=== PATIENT | female | born 1960 | race Caucasian/White ===

== ENCOUNTER 2019-10-29 06:22 | Day surgery (SDC) | payer MEDICAID, SELFPAY ==
[2019-10-28 16:01] VITALS: BMI 28.3
[2019-10-29 06:47] VITALS: BP 156/97; PULSE 60; RESP 18; TEMP 36.8; O2SAT 97
[2019-10-29] MEDS: sodium chloride 0.9% 1,000 ML 30 ML IV (07:02)
--- NOTE | 2019-10-29 07:16 | ANES.PREANE2 ---
Pre-Anesthetic Assessment Pre-Anesthetic Assessment: Height/Weight: Height 1.6 m Weight 72.575 kg Temp Pulse Resp BP Pulse Ox 98.3 F 60 18 156/97 97 10/29/19 06:47 10/29/19 06:47 10/29/19 06:47 10/29/19 06:47 10/29/19 06:47 Preop Diagnosis: Change in bowel habit Proposed Procedure: Operation Date: 10/29/19 07:55 Proposed Procedures p Colonoscopy 36095 R19.4(Not Applicable) - Ladnen Hunt MD Last intake: Intake Last Liquid Date 10/28/19 Last Solid Date 10/28/19 Social: Social History: No alcohol and No tobacco Exam: Pre-Anes Outpt Exam: alert, oriented x 3, clear to auscultation bilaterally and regular rate & rhythm Airway: Submandibular: WNL Cervical ROM: WNL MP: 2 Dentition: Other (teeth ok) History/ROS: No significant history except as noted Pulmonary: Pulmonary: Asthma (mild) CV/HEM: CV/HEM: HTN : : None reported Hepatic: Hepatic: None reported GI: GI: GERD (daily) Metabolic: Metabolic: Thyroid Musc/skel: Musc/skel: Lower Back Pain and OA/DJD Neuropsych: Neuropsych: Anxiety and Depression Anesthetic Plan: ASA status: 3 Anesthesia: Anesthesia Evaluation and MAC Risk of > 500 ml blood loss (7ml/kg in children): No Meds/Allergies Current Medications: Current Medications Generic Name Dose Route Start Last Admin Trade Name Freq PRN Reason Stop Dose Admin Sodium Chloride 1,000 mls @ 30 ml s/hr 10/29/19 06:45 10/29/19 07:02 Sodium Chloride 0.9% IV 10/30/19 06:44 30 mls/hr .Q24H CHADD Administration PFSH Anesthesia PFSH: Medical History Anxiety and depression Diverticulosis GERD (gastroesophageal reflux disease) History of colon polyps Hypertension Hypothyroid Surgical History H/O arthroscopic knee surgery 1981 H/O cystoscopy History of appendectomy 1976 History of bunionectomy of left great toe 2016 History of colonoscopy (~2018) Hx of cholecystectomy 09/2018 Hx of colectomy (~2019) Laparoscopic sigmoid colectomy with colorectal anastomosis 06/12/18 S/P ureteral stent placement Cystoscopy with the double-J ureteric stent placement per Dr. Soriano 06/12/18 Family History Grandmother Dementia Unknown Dementia Data Anesthesia Cardiac Studies: No Data to Display
--- NOTE | 2019-10-29 07:50 | W.PM.OPSUD ---
Surgery/Procedure H&P Update DATE OF PROCEDURE: October 29, 2019 DATE H&P PERFORMED: 10/28/19 H&P UPDATE INFORMATION: I have reviewed H&P completed within last 30 days, I have examined patient prior to procedure and No changes to prior documentation PREOP DIAGNOSIS: Change in bowel habit PRIMARY INDICATION FOR PROCEDURE: The same PLANNED PROCEDURE: Operation Date: 10/29/19 07:55 Proposed Procedures p Colonoscopy 26525 R19.4(Not Applicable) - Landen Hunt MD
[2019-10-29 08:40] VITALS: BP 91/59; PULSE 61; RESP 18; TEMP 36.1; O2SAT 94
[2019-10-29 08:51] VITALS: BP 117/77; PULSE 58; RESP 16; TEMP 36.3; O2SAT 97
== END 2019-10-29 09:15 | disposition home or self-care (01) ==
PROVIDERS: PCP Nurse Practitioner; Visit Provider Surgery
PROC: 0DJD8ZZ Inspection of Lower Intestinal Tract, Via Natural or Artificial Opening Endoscopic (ICD-10-PCS; CPT 45378; principal; 2019-10-29 07:50)
DX: R19.4 Change in bowel habit (principal); Z86.010 Personal history of colon polyps; D12.4 Benign neoplasm of descending colon; K57.30 Diverticulosis of large intestine without perforation or abscess without bleeding; I10 Essential (primary) hypertension; K21.9 Gastro-esophageal reflux disease without esophagitis
CPT/HCPCS: 12345; 45380; 88305; J2704; J7030

== ENCOUNTER 2019-11-20 07:15 | Day surgery (SDC) | payer MEDICAID, SELFPAY ==
[2019-11-18 14:15] VITALS: BMI 28.0
[2019-11-20 07:42] VITALS: BP 162/62; PULSE 62; RESP 18; TEMP 36.1; O2SAT 98
[2019-11-20] MEDS: sodium chloride 0.9% 1,000 ML 30 ML IV (07:47)
--- NOTE | 2019-11-20 07:49 | ANES.PREANE2 ---
Pre-Anesthetic Assessment Pre-Anesthetic Assessment: Height/Weight: Height 1.6 m Weight 71.668 kg Temp Pulse Resp BP Pulse Ox 97 F L 62 18 162/62 98 11/20/19 07:42 11/20/19 07:42 11/20/19 07:42 11/20/19 07:42 11/20/19 07:42 Preop Diagnosis: Nausea and vomiting Proposed Procedure: Operation Date: 11/20/19 08:45 Proposed Procedures p EGD 59897 K21.9(Not Applicable) - Landen Hunt MD Familial anesthetic complications: None Was Beta José Manuel taken within 24 hours: N/A Last intake: Intake Last Liquid Date 11/19/19 Last Liquid Time 21:00 Last Solid Date 11/19/19 Last Solid Time 21:00 Social: Social History: No alcohol and No tobacco Exam: Pre-Anes Outpt Exam: alert, oriented x 3, clear to auscultation bilaterally and regular rate & rhythm Airway: Cervical ROM: WNL MP: 3 Dentition: Chipped Pulmonary: Pulmonary: Asthma CV/HEM: CV/HEM: HTN : : None reported Hepatic: Hepatic: None reported GI: GI: GERD Metabolic: Metabolic: Hyperlipidemia and Thyroid Musc/skel: Musc/skel: None reported Neuropsych: Neuropsych: None reported Anesthetic Plan: ASA status: 2 Anesthesia: MAC Risk of > 500 ml blood loss (7ml/kg in children): No Meds/Allergies Current Medications: Current Medications Generic Name Dose Route Start Last Admin Trade Name Freq PRN Reason Stop Dose Admin Sodium Chloride 1,000 mls @ 30 ml s/hr 11/20/19 07:45 11/20/19 07:47 Sodium Chloride 0.9% IV 11/21/19 07:44 30 mls/hr .Q24H CHADD Administration PFSH Anesthesia PFSH: Medical History Anxiety and depression Diverticulosis GERD (gastroesophageal reflux disease) History of colon polyps Hypertension Hypothyroid Surgical History H/O arthroscopic knee surgery 1981 H/O cystoscopy History of appendectomy 1977 History of bunionectomy of left great toe 2016 History of colonoscopy (~2018) History of colonoscopy with polypectomy (~09/2019) Hx of cholecystectomy 09/2018 Hx of colectomy (~2018) Laparoscopic sigmoid colectomy with colorectal anastomosis 06/12/18 S/P ureteral stent placement Cystoscopy with the double-J ureteric stent placement per Dr. Soriano 06/12/18 Family History Grandmother Dementia Unknown Dementia Data Anesthesia Cardiac Studies: No Data to Display
--- NOTE | 2019-11-20 09:27 | W.PM.OPSUD ---
Surgery/Procedure H&P Update DATE OF PROCEDURE: November 20, 2019 DATE H&P PERFORMED: 11/06/19 H&P UPDATE INFORMATION: I have reviewed H&P completed within last 30 days, I have examined patient prior to procedure and No changes to prior documentation PREOP DIAGNOSIS: Nausea and vomiting PRIMARY INDICATION FOR PROCEDURE: The same PLANNED PROCEDURE: Operation Date: 11/20/19 08:45 Proposed Procedures p EGD 55631 K21.9(Not Applicable) - Landen Hunt MD
[2019-11-20 09:50] VITALS: BP 114/74; PULSE 61; RESP 16; TEMP 36.4; O2SAT 97
[2019-11-20 09:58] VITALS: BP 143/74; PULSE 60; RESP 16; O2SAT 97
--- NOTE | 2019-11-20 09:58 | ANE.PACU2 ---
Inpatient post-anesthesia follow up: Airway intact: Yes Vital signs: Temperature 97.6 F Pulse Rate 61 Respiratory Rate 16 Blood Pressure 114/74 Pulse Oximetry 97 Oxygen Delivery Me thod Nasal Cannula Oxygen Flow Rate 3 Fraction of Inspir ed Oxygen Hydration adequate: Yes Nausea and vomiting: No Mental status: Baseline
[2019-11-21 13:35] LABS: H. Pylori / CLO Test Negative
== END 2019-11-20 10:20 | disposition home or self-care (01) ==
PROVIDERS: PCP Nurse Practitioner; Visit Provider Surgery
PROC: 0DJ08ZZ Inspection of Upper Intestinal Tract, Via Natural or Artificial Opening Endoscopic (ICD-10-PCS; CPT 43235; principal; 2019-11-20 08:45)
DX: R11.2 Nausea with vomiting, unspecified (principal); K21.9 Gastro-esophageal reflux disease without esophagitis; K29.70 Gastritis, unspecified, without bleeding; I10 Essential (primary) hypertension; E78.5 Hyperlipidemia, unspecified; Z86.010 Personal history of colon polyps; E03.9 Hypothyroidism, unspecified
CPT/HCPCS: 12345; 43239; 87077; J2704

== ENCOUNTER 2020-02-12 14:01 | Outpatient (CLI) | payer MEDICARE, MEDICAID, SELFPAY ==
--- NOTE | 2020-02-12 14:21 | XR_ITS ---
WS: [id number] KNEE RIGHT TECHNIQUE: 2 views of the right knee CLINICAL INFORMATION: CHRONIC PATELLOFEMORAL PAIN OF RIGHT KNEE COMPARISON: None. FINDINGS: Osteopenia. Moderate degenerative arthritis with medial and lateral compartment narrowing. Degenerati ve narrowing at the patellofemoral articulation. Hypertrophic patella. Calcified loose bodies in the suprapatellar bursa. No acute fractures. XR/XR knee RT 1-2V [id number] IMPRESSION: 1. Moderate tricompartmental arthritis with hypertrophic patella. 2. Calcified loose bodies in the suprapatellar bursa.
--- NOTE | 2020-02-12 14:22 | CT_ITS ---
WS: [id number] CT HEAD TECHNIQUE: Noncontrast CT of the head obtained from the skullbase to the vertex. CLINICAL INFORMATION: COGNITIVE CHANGES COMPARISON: 2 13,019 DLP: 925.[address] scans at [facility] use at least one of these dose optimization techniques: automat ed exposure control; mA and/or kV adjustment per patient size (includes targeted exams where dose is matched to clinical indication); or iterative reconstruction. FINDINGS: No evidence of intracranial hemorrhage or mass effect. Ventricular system and basal cisterns are seymour nt. Mild small vessel changes with moderate parenchymal volume loss. No extra-axial fluid collections . No evidence of mass or mass effect. Normal rodriguez-white differentiation. Paranasal sinuses and mastoid air cells are well aerated. .Normal visualized soft tissues. CT/CT head wo con* [id number] IMPRESSION: 1. No evidence of intracranial hemorrhage or mass effect. 2. Mild small vessel changes. Moderate parenchymal volume loss. 3. No acute intracranial findings and no significant changes since 2019.
== END 2020-02-12 14:02 | disposition home or self-care (01) ==
PROVIDERS: PCP Nurse Practitioner; Visit Provider Nurse Practitioner
DX: R41.89 Other symptoms and signs involving cognitive functions and awareness (principal); M13.861 Other specified arthritis, right knee
CPT/HCPCS: 70450; 73560

== ENCOUNTER 2020-05-08 09:46 | Outpatient (CLI) | payer MEDICARE, SELFPAY ==
--- NOTE | 2020-05-08 09:53 | MM_ITS ---
WS: [id number] BILATERAL DIGITAL SCREENING MAMMOGRAPHY WITH CAD CLINICAL INFORMATION: SCREENING HISTORY: Screening mammogram. No current complaints. COMPARISON: TECHNIQUE: Bilateral CC and MLO views. FINDINGS: Scattered fibroglandular densities bilaterally. No suspicious focal mass, asymmetry, calcifications, or architectural distortion. No evidence of malignancy. Stable intramammary lymph nodes. MM/[place] [id number] IMPRESSION: BI-RADS: 2-Benign FOLLOW UP: 1 Year Follow-up Recommend return to annual screening mammography.
== END 2020-05-08 09:47 | disposition home or self-care (01) ==
LOC: RADSHAW 09:52
PROVIDERS: PCP Nurse Practitioner; Visit Provider Nurse Practitioner Family
DX: Z12.31 Encounter for screening mammogram for malignant neoplasm of breast (principal)
CPT/HCPCS: 77067

== ENCOUNTER → 2020-07-01 11:28 | Outpatient (BNVA) | payer OTHER, SELFPAY | PROVIDERS: PCP Nurse Practitioner; Visit Provider Psychiatry & Neurology Psychiatry | DX: F41.1 Generalized anxiety disorder (principal) | CPT/HCPCS: 80061; 83036 ==

== ENCOUNTER → 2021-06-10 12:52 | Outpatient (BNVA) | payer OTHER, SELFPAY ==
[2020-07-02 11:14] VITALS: BP 120/73; BMI 27.8
== END ==
PROVIDERS: PCP Nurse Practitioner; Visit Provider Psychiatry & Neurology Psychiatry
DX: F33.0 Major depressive disorder, recurrent, mild (principal)
CPT/HCPCS: 80061; 83036

== ENCOUNTER → 2021-07-26 11:36 | Outpatient (BNVA) | payer MEDICARE, SELFPAY ==
[2021-06-14 15:04] VITALS: BP 156/98; BMI 21.3
== END ==
PROVIDERS: PCP Nurse Practitioner; Visit Provider Surgery
DX: Z20.822 Contact with and (suspected) exposure to COVID-19 (principal)
CPT/HCPCS: 87635

== ENCOUNTER 2021-07-29 06:47 | Day surgery (SDC) | payer MEDICARE, MEDICAID, SELFPAY ==
[2020-07-02 11:14] VITALS: BP 120/73; BMI 27.8
[2021-06-14 15:04] VITALS: BP 156/98; BMI 21.3
[2021-07-27 12:38] VITALS: BMI 21.2
--- NOTE | 2021-07-29 06:53 | P.ANESASSM_ITS ---
Pre-Anesthetic Assessment Height/Weight: Height 1.6 m Weight 54.431 kg Preop Diagnosis: Blood in stool and nonintentional Weight loss Operation Date: 07/29/21 08:15 Proposed Procedures p Colonoscopy 86805 R63.4 Z86.010(Not Applicable) - Landen Hunt MD Familial anesthetic complications: None Was Beta José Manuel taken within 24 hours: N/A Was Clonidine taken within 24 hours: N/A Last intake: > 8hrs Social No alcohol and No tobacco Exam alert, oriented x 3, clear to auscultation bilaterally and regular rate & rhythm Airway Cervical ROM: within normal limits Mallampati: Class II Dentition: chipped Pulmonary Asthma (inhaler prn (occasional)) CV/HEM Hypertension GI Gastroesophageal Reflux Disease Metabolic Hyperlipidemia and Thyroid Disease [facility] [place] None reported Neuropsych None reported Anesthetic Plan ASA status: 3 Anesthesia: MAC Risk of > 500 ml blood loss (7ml/kg in children): No Medications/Allergies Home Medications Medication Instructions Recorded Confirmed Last Taken Type atorvastatin 10 mg tablet 10 mg PO DAILY 10/24/19 07/27/21 1 Day Ago History ~11/19/19 gabapentin 600 mg tablet 600 mg PO TID 10/24/19 07/27/21 1 Day Ago History ~11/19/19 lisinopril 5 mg tablet 5 mg PO DAILY 10/24/19 07/27/21 1 Day Ago History ~11/19/19 cholecalciferol (vitamin D3) 25 50 mcg PO BID cap 05/13/20 07/27/21 Unknown History mcg (1,000 unit) capsule levothyroxine 150 mcg capsule 75 mcg PO DAILY cap 05/13/20 07/27/21 Unknown History albuterol sulfate 90 mcg/actuation 2 puff INHALATION Q6H PRN 06/11/21 07/27/21 Unknown History aerosol inhaler famotidine 20 mg tablet 20 mg PO DAILY 06/11/21 07/27/21 Unknown History mecobalamin (vitamin B12) 10,000 10,000 mcg IM .monthly ea 06/11/21 07/27/21 Unknown History mcg solution for injection Allergies Allergy/AdvReac Type Severity Reaction Status Date / Time meperidine [From Demerol] Allergy Unknown Verified 06/10/21 12:09 [facility] Anesthesia Medical History Anxiety and depression Diverticulosis GERD (gastroesophageal reflux disease) History of colon polyps Hypertension Hypothyroid Psychiatric care Surgical History H/O arthroscopic knee surgery 1981 H/O cystoscopy History of appendectomy 1976 History of bunionectomy of left great toe 2016 History of colonoscopy (~2018) History of colonoscopy with polypectomy (~09/2019) Hx of cholecystectomy 09/2018 Hx of colectomy (~2018) Laparoscopic sigmoid colectomy with colorectal anastomosis 06/12/18 S/P ureteral stent placement Cystoscopy with the double-J ureteric stent placement per Dr. Soriano 06/12/18 Family History Grandmother Dementia Hypertension Unknown Dementia Sister Hyperlipidemia Other Anxiety and depression Social History (Updated 06/11/21 @ 09:37 by Natacha Serrano RN) Smoking and tobacco status: never smoked Second hand smoke exposure: Yes Alcohol intake: former Former alcohol use details: quit 5 years ago Adopted: No Caregiver/support person: No Lives independently: Yes Household members: friend(s) Housing: Manufactured/Mobile home Marital status: Single Number of children: 0 Number of grandchildren: 0 Highest education level completed: Some College, No Degree service: No Current occupational status: retired and disabled Pets and animals: Yes (sneaky and traveler) Pets & animals: cat(s) and dog(s) History of recent travel: No Leisure activites: art, volunteer work and other Leisure activities details: go to river and look for arrow heads Sexually active: No Current gender identity: Female Sakshi/Confucianism: Shinto Special sakshi needs: No Agree to transfusion: Yes Financial difficulty paying for basics: Not Very Hard Female Reproductive History Para: 0 Data Anesthesia Cardiac Studies: No Data to Display
[2021-07-29 07:05] VITALS: BP 118/88; PULSE 59; RESP 18; TEMP 36.1; O2SAT 97
[2021-07-29] MEDS: sodium chloride 0.9% 1,000 ML 30 ML IV (07:16)
--- NOTE | 2021-07-29 08:20 | P.HP_ITS ---
Same Day Surgery H&P Indication for Procedure/HPI DATE OF PROCEDURE: July 29, 2021 CHIEF COMPLAINT/INDICATIONFOR SURGICAL PROCEDURE: Weight loss PREOP DIAGNOSIS: Blood in stool and nonintentional Weight loss PLANNED PROCEDURE: Operation Date: 07/29/21 08:15 Proposed Procedures p Colonoscopy 18444 R63.4 Z86.010(Not Applicable) - Landen Hunt MD 06/09/2021 This is a pleasant 61 years old female patient well-known to me from previous clinical encounter as she did undergo a laparoscopic sigmoid colectomy for com plicated diverticulosis back in 2018.? Patient had a colonoscopy back in October 2019 and was found to have at that time descending colon polyps and diverticulosis. Patient presents to my practice today as a referral because of nonintentional weight loss and blood in stool, reports poor appetite and generalized fatigue. 07/29/2021 Patient comes today for diagnostic colonoscopy status post sigmoid colon resection ROS All systems have been reviewed negative except as per the above or per problem list Medications/Allergies* Home Medications Medication Instructions Recorded Confirmed Type atorvastatin 10 mg tablet 10 mg PO DAILY 10/24/19 07/27/21 History gabapentin 600 mg tablet 600 mg PO TID 10/24/19 07/27/21 History lisinopril 5 mg tablet 5 mg PO DAILY 10/24/19 07/27/21 History cholecalciferol (vitamin D3) 25 50 mcg PO BID cap 05/13/20 07/27/21 History mcg (1,000 unit) capsule levothyroxine 150 mcg capsule 75 mcg PO DAILY cap 05/13/20 07/27/21 History albuterol sulfate 90 mcg/actuation 2 puff INHALATION Q6H PRN 06/11/21 07/27/21 History aerosol inhaler famotidine 20 mg tablet 20 mg PO DAILY 06/11/21 07/27/21 History mecobalamin (vitamin B12) 10,000 10,000 mcg IM .monthly ea 06/11/21 07/27/21 History mcg solution for injection Allergies/Adverse Reactions Allergy/AdvReac Type Severity Reaction Status Date / Time meperidine [From Demerol] Allergy Unknown Verified 07/29/21 08:21 Current Medications: Generic Name Dose Route Start Last Admin Trade Name Freq PRN Reason Stop Dose Admin Sodium Chloride 1,000 mls @ 30 mls/hr 07/29/21 07:00 07/29/21 07:16 Sodium Chloride 0.9% IV 30 mls/hr .Q24H CHADD Administration Pertinent History/Comorbid Conditions* Medical History (Updated 06/10/21 @ 06:42 by Landen Hunt MD) Anxiety and depression Diverticulosis GERD (gastroesophageal reflux disease) History of colon polyps Hypertension Hypothyroid Psychiatric care Surgical History (Updated 11/07/19 @ 13:08 by Landen Hunt MD) H/O arthroscopic knee surgery 1981 H/O cystoscopy History of appendectomy 1976 History of bunionectomy of left great toe 2016 History of colonoscopy (~2018) History of colonoscopy with polypectomy (~09/2019) Hx of cholecystectomy 09/2018 Hx of colectomy (~2018) Laparoscopic sigmoid colectomy with colorectal anastomosis 06/12/18 S/P ureteral stent placement Cystoscopy with the double-J ureteric stent placement per Dr. Soriano 06/12/18 Family History (Updated 03/29/21 @ 16:15 by Betty Shelton) Dementia Grandmother Unknown Hyperlipidemia Sister Anxiety and depression Hypertension Grandmother Social History Smoking and tobacco status: never smoked Second hand smoke exposure: Yes Alcohol intake: former Former alcohol use details: quit 5 years ago Adopted: No Caregiver/support person: No Lives independently: Yes Household members: friend(s) Housing: Manufactured/Mobile home Marital status: Single Number of children: 0 Number of grandchildren: 0 Highest education level completed: Some College, No Degree service: No Current occupational status: retired and disabled Pets and animals: Yes (sneaky and traveler) Pets & animals: cat(s) and dog(s) History of recent travel: No Leisure activites: art, volunteer work and other Leisure activities details: go to river and look for arrow heads Sexually active: No Current gender identity: Female Sakshi/Nondenominational: Pentecostal Special sakshi needs: No Agree to transfusion: Yes Financial difficulty paying for basics: Not Very Hard Pertinent Exam Findings alert, oriented x 3, regular rate & rhythm and procedure specific exam findings (Abdominal examination nontender nondistended soft) Recommendations Surgery/Procedure today (Colonoscopy with possible biopsy) Coding Level of Care Code Acute Tree Specialist for Magalis Araya
[2021-07-29 09:16] VITALS: BP 92/51; PULSE 60; RESP 20; TEMP 36.2; O2SAT 98
[2021-07-29 09:31] VITALS: BP 113/81; PULSE 50; RESP 16; O2SAT 100
--- NOTE | 2021-07-29 19:15 | ANE.PACU2 ---
Inpatient post-anesthesia follow up: Airway intact: Yes Vital signs: Temperature 97.2 F Pulse Rate 50 Respiratory Rate 16 Blood Pressure 113/81 Pulse Oximetry 100 Oxygen Delivery Me thod Room Air Oxygen Flow Rate 3 Fraction of Inspir ed Oxygen Hydration adequate: Yes Nausea and vomiting: No Pain level: 1 Mental status: Baseline
== END 2021-07-29 09:45 | disposition home or self-care (01) ==
PROVIDERS: PCP Nurse Practitioner; Visit Provider Surgery
PROC: 0DJD8ZZ Inspection of Lower Intestinal Tract, Via Natural or Artificial Opening Endoscopic (ICD-10-PCS; CPT 45378; principal; 2021-07-29 08:15)
DX: K92.1 Melena (principal); R63.4 Abnormal weight loss; Z68.20 Body mass index [BMI] 20.0-20.9, adult; Z86.010 Personal history of colon polyps; Z90.49 Acquired absence of other specified parts of digestive tract; I10 Essential (primary) hypertension; E03.9 Hypothyroidism, unspecified; K57.30 Diverticulosis of large intestine without perforation or abscess without bleeding; J45.909 Unspecified asthma, uncomplicated; K21.9 Gastro-esophageal reflux disease without esophagitis; E78.5 Hyperlipidemia, unspecified; F41.9 Anxiety disorder, unspecified; F32.9 Major depressive disorder, single episode, unspecified
CPT/HCPCS: 45378; J2704; J7030

== ENCOUNTER 2021-07-29 14:15 | Outpatient (CLI) | payer MEDICARE, MEDICAID, SELFPAY ==
[2020-07-02 11:14] VITALS: BP 120/73; BMI 27.8
[2021-06-14 15:04] VITALS: BP 156/98; BMI 21.3
--- NOTE | 2021-07-29 14:25 | MM_ITS ---
WS: [id number] Bilateral screening digital mammogram, 07/29/2021 Clinical Data: SCREENING Comparison: 05/08/2020, 06/02/2016, 05/27/2015, 05/26/2014, 07/26/2010. Findings: The breast parenchymal pattern shows abnormal glandular tissue No spiculated masses or clustered calc ifications are seen. There are no secondary signs of carcinoma. MM/[place] [id number] Impression: 1. Negative bilateral mammogram unchanged. 2. Recommend annual screening mammograms. BIRADS: 1-Negative FOLLOW UP: 1 Year Follow-up The CAD apparel stock checker was used.
== END 2021-07-29 14:16 | disposition home or self-care (01) ==
PROVIDERS: PCP Nurse Practitioner; Visit Provider Nurse Practitioner
DX: Z12.31 Encounter for screening mammogram for malignant neoplasm of breast (principal)
CPT/HCPCS: 77067

== ENCOUNTER → 2021-09-01 11:06 | Outpatient (BNVA) | payer MEDICARE, MEDICAID, SELFPAY ==
[2021-06-14 15:04] VITALS: BP 156/98; BMI 21.3
== END ==
PROVIDERS: PCP Nurse Practitioner; Visit Provider Surgery
DX: Z09 Encounter for follow-up examination after completed treatment for conditions other than malignant neoplasm (principal); K57.31 Diverticulosis of large intestine without perforation or abscess with bleeding
CPT/HCPCS: 99213

== ENCOUNTER → 2022-02-08 15:04 | Outpatient (BNVA) | payer MEDICARE, MEDICAID, SELFPAY ==
[2021-06-14 15:04] VITALS: BP 156/98; BMI 21.3
== END ==
PROVIDERS: PCP Nurse Practitioner; Visit Provider Orthopaedic Surgery
DX: S43.402A Unspecified sprain of left shoulder joint, initial encounter (principal); W19.XXXA Unspecified fall, initial encounter
CPT/HCPCS: 73030; 99203

== ENCOUNTER → 2022-03-07 14:12 | Outpatient (BNVA) | payer MEDICAID, SELFPAY ==
[2021-06-14 15:04] VITALS: BP 156/98; BMI 21.3
== END ==
PROVIDERS: PCP Nurse Practitioner; Referring Provider Nurse Practitioner Family; Visit Provider Podiatrist Foot & Ankle Surgery
DX: M20.41 Other hammer toe(s) (acquired), right foot (principal); M20.42 Other hammer toe(s) (acquired), left foot
CPT/HCPCS: 99213; 99214

== ENCOUNTER 2022-03-11 07:41 | Outpatient (CLI) | payer MEDICARE, MEDICAID, SELFPAY ==
[2021-06-14 15:04] VITALS: BP 156/98; BMI 21.3
--- NOTE | 2022-03-11 | CT_ITS ---
WS: [id number] CT HEAD WITH AND WITHOUT CONTRAST HISTORY: AMNESIA TECHNIQUE: Noncontrast 2.5 mm axial images obtained from the vertex to the skull base. Additional randy ging performed at 2.5 mm axial images status post IV contrast. Bone and soft tissue windows are revie wed. All CT scans at [facility] use at least one of these dose optimization techniques: autom ated exposure control; mA and/or kV adjustment per patient size (includes targeted exams where dose i s matched to clinical indication); or iterative reconstruction. CONTRAST: Omnipaque 350; 80 mL IV. DLP: 1894.66 mGy.cm COMPARISON: 02/12/2020 No acute intracranial hemorrhage, edema or midline shift. Mild atrophy and small vessel ischemic dise ase. No significant progression since 02/12/2020. No enhancing mass or vascular malformations identified. Dural venous sinuses are normally enhancing. No aneurysms identified. Mild hypoplasia LEFT A1 segment but it is patent. Paranasal sinuses as visualized: Clear. Mastoid air cells: Clear. Calvarium and scalp: Intact. CT/CT head wo/w con [id number] IMPRESSION: 1. No acute hemorrhage, edema or mass effect. 2. Mild atrophy and small vessel ischemic disease. No progression since 020. 3. No enhancing masses. No vascular malformations identified.
[2022-03-11 08:33] LABS: Blood Urea Nitrogen 15 mg/dL (8-23); Glomerular Filtration Rate 72.7 mL/min (90-130)
[2022-03-11] MEDS: iohexol 350 mg/mL 100 mL Btl IV (08:38)
== END 2022-03-11 07:42 | disposition home or self-care (01) ==
PROVIDERS: PCP Nurse Practitioner; Visit Provider Nurse Practitioner Family
DX: R41.3 Other amnesia (principal); G31.9 Degenerative disease of nervous system, unspecified; I67.82 Cerebral ischemia
CPT/HCPCS: 70470; 82565; 84520

== ENCOUNTER → 2022-04-13 11:28 | Outpatient (BNVA) | payer MEDICARE, MEDICAID, SELFPAY ==
[2021-06-14 15:04] VITALS: BP 156/98; BMI 21.3
== END ==
PROVIDERS: PCP Nurse Practitioner; Referring Provider Nurse Practitioner Family; Visit Provider Specialist
DX: F32.A Depression, unspecified (principal); G31.84 Mild cognitive impairment of uncertain or unknown etiology
CPT/HCPCS: 96116; 99205

== ENCOUNTER 2022-07-06 02:40 | Emergency (ER) | payer MEDICARE, MEDICAID, SELFPAY ==
[2021-06-14 15:04] VITALS: BP 156/98; BMI 21.3
--- NOTE | 2022-07-06 02:43 | XR_ITS ---
WS: [id number] PORTABLE CHEST HISTORY: ingestion COMPARISON: 01/07/2016 Lungs are clear and well expanded. Small granuloma RIGHT upper lobe. No pleural effusion or pneumotho rax. Cardiac size: Normal. Mediastinum/Aorta: Mildly ectatic aorta. No osseous abnormality seen. Mild increased air within the splenic flexure. Prior cholecystectomy. XR/XR chest 1V portable [id number] IMPRESSION: Unremarkable portable chest.
--- NOTE | 2022-07-06 02:43 | XR_ITS ---
WS: [id number] THORACIC SPINE TECHNIQUE: AP and lateral views are performed. HISTORY: fall COMPARISON: None available. Slight increase in the thoracic kyphosis. Mild osteopenia. Pedicles are identified. No fractures or b one destruction. 3 mm anterolisthesis of C2 and C3. Disc spaces are narrowed and desiccated at C4-5 a nd C5-6. XR/XR thoracic spine 3V* [id number] IMPRESSION: Mild increase in thoracic kyphosis. No acute fracture.
--- NOTE | 2022-07-06 02:44 | W.ED.GENADLT ---
HPI - General Adult General: Chief complaint: General Medical Stated complaint: ingestion Time Seen by Provider: 07/06/22 02:43 Source: patient and EMS Mode of arrival: EMS Limitations: no limitations History of Present Illness: 62-year-old female states that she went over her friend's house to do laundry and she states she put her bleach in a Mountain Dew bottle she states that then she mistake and it thought it was Mountain Dew and drank a small drink out of the Mountain Dew bottle roughly 30 minutes ago states she had some burning initially and states she feels fine currently denies any shortness of breath she also complains of some back pain states she had a fall 2 days ago and landed on her back and has had pain to her thoracic spine she rates at 3 out of 10 denies hitting her head no other complaints Associated symptoms: Deny chest pain, dyspnea, headache(s), nausea, rash or vomiting Review of Systems Const: Denies: fever(s), chills, body aches or change in appetite Eyes: Denies: blurry vision or eye discomfort ENMT: Denies: throat pain or dental pain Card: Denies: chest pain Resp: Denies: dyspnea GI: Denies: abdominal pain, nausea, vomiting or diarrhea : Denies: dysuria Musc: Reports: back pain Skin/Breast: Denies: rash Neuro: Denies: headache(s) Psych: Denies: depression Lonnie/Lymph: Denies: easy bruising All/Imm: Denies: urticaria PFSH ED PFSH: Medical History Anxiety and depression Diverticulosis GERD (gastroesophageal reflux disease) History of colon polyps Hypertension Hypothyroid Psychiatric care Surgical History H/O arthroscopic knee surgery 1981 H/O cystoscopy History of appendectomy 1976 History of bunionectomy of left great toe 2016 History of colonoscopy (~2018) History of colonoscopy with polypectomy (~09/2019) Hx of cholecystectomy 09/2018 Hx of colectomy (~2018) Laparoscopic sigmoid colectomy with colorectal anastomosis 06/12/18 S/P ureteral stent placement Cystoscopy with the double-J ureteric stent placement per Dr. Soriano 06/12/18 Family History Grandmother Dementia Hypertension Unknown Dementia Sister Hyperlipidemia Other Anxiety and depression Social History Smoking and tobacco status: never smoked Second hand smoke exposure: Yes Alcohol intake: former Former alcohol use details: quit 5 years ago Adopted: No Caregiver/support person: No Lives independently: Yes Household members: friend(s) Housing: Manufactured/Mobile home Marital status: Single Number of children: 0 Number of grandchildren: 0 Highest education level completed: Some College, No Degree service: No Current occupational status: retired and disabled Pets and animals: Yes (sneaky and traveler) Pets & animals: cat(s) and dog(s) History of recent travel: No Leisure activites: art, volunteer work and other Leisure activities details: go to river and look for arrow heads Sexually active: No Current gender identity: Female Sakshi/Muslim: Judaism Special sakshi needs: No Agree to transfusion: Yes Financial difficulty paying for basics: Not Very Hard Female Reproductive History: Para: 0 Physical Exam Const: COMMON NORMALS: no acute distress, patient oriented x3 and healthy appearing HENMT: COMMON NORMALS: normocephalic and atraumatic HEAD & SCALP: normocephalic and atraumatic THROAT: posterior oropharynx normal Eye: COMMON NORMALS: Equal, round and reactive pupils present and EOMs intact bilaterally PUPIL: Yes Equal, round and reactive pupils present Neck/C-Spine: COMMON NORMALS: full ROM and supple Chest: COMMONS NORMALS: normal inspection of the chest and normal palpation of entire chest wall Resp: COMMON NORMALS: normal respiratory effort, No retractions, No use of accessory muscles and clear to auscultation bilaterally AUSCULTATION: clear to auscultation bilaterally Cardio: COMMON NORMALS: regular rate, regular rhythm and No murmurs present (Cardio) RATE: regular rate RHYTHM: regular rhythm GI: COMMON NORMALS: Normal to inspection, nondistended, normoactive bowel sounds present, Soft to palpation, non-tender and no masses PALPATION: Yes Soft to palpation Back/Pelvis: OTHER: tenderness over thoracic spine and contusion Extremity: COMMON NORMALS: normal to inspection and full ROM Neuro: COMMON NORMALS: patient oriented x3, moves all extremities and no focal motor deficits Psych: COMMON NORMALS: mental status grossly normal, Normal thought process present and cooperative THOUGHT PROCESS: Normal thought process present Skin: COMMON NORMALS: no rashes or lesions noted and no wounds GENERAL SKIN EXAM: no rashes or lesions noted Course Vital Signs: Vital signs: Vital Signs Temperature 97.8 F 07/06/22 02:45 Pulse Rate 79 07/06/22 02:45 Respiratory Rate 16 07/06/22 02:45 Blood Pressure 142/113 07/06/22 02:45 Pulse Oximetry 95 07/06/22 02:45 Oxygen Delivery Me thod 07/06/22 02:45 MDM - General Adult Medical Decision Making Patient presents here after ingestion of bleach she only ingested a small amount she has no signs of any injuries here x-rays are normal she did have a fall recently to her T-spine x-ray is normal she is stable for discharge at this time. Lab Data Radiology Impressions Chest X-Ray 07/06/22 02:43 IMPRESSION: Unremarkable portable chest. Thoracic Spine X-Ray 07/06/22 02:43 IMPRESSION: Mild increase in thoracic kyphosis. No acute fracture. Discharge Plan Discharge Patient Disposition: Home Clinical Impression: Bleach ingestion, Contusion of back Condition: Stable Prescriptions: No Action atorvastatin 10 mg tablet 10 mg PO DAILY lisinopril 5 mg tablet 5 mg PO DAILY levothyroxine 150 mcg capsule 75 mcg PO DAILY cholecalciferol (vitamin D3) 25 mcg (1,000 unit) capsule 50 mcg PO BID albuterol sulfate 90 mcg/actuation HFA aerosol inhaler 2 puff inhalation Q6H PRN (Reason: Shortness Of Breath) mecobalamin (vitamin B12) 10,000 mcg recon soln 10,000 mcg IM .monthly Rx Instructions: TAKES ON famotidine 20 mg tablet 20 mg PO DAILY (DME) orthopedic shoes and accommodative insoles See Rx Instructions .Route .MEDSUPPLY Qty: 1 0RF Rx Instructions: As directed by FAIZAN&O citalopram 20 mg tablet 20 mg PO ONCE 90 Days Qty: 90 3RF Discharge Orders: Discharge ED (Routine); Ordered 07/06/22 Ordered By: Corona Smith Referrals: Jen Cook TRANSITION OF CARE SPECIALIST [Primary Care Provider] - Discharge Diet: Advance as tolerated Discharge Activity: Resume usual activity Patient Instructions: Contusion in Adults (ED) Coding Level of Care Code ED Loan Interviewer Mortgage for Magalis Araya
[2022-07-06 02:45] VITALS: BP 142/113; PULSE 79; RESP 16; TEMP 36.6; O2SAT 95
--- NOTE | 2022-07-06 02:53 | PC.NURSE ---
Spoke with Jayne at [facility]. States household bleach is an irritant, to encourage drinking cold fluids. notified
[2022-07-06 03:59] VITALS: BP 141/92; PULSE 78; RESP 18; O2SAT 95
== END 2022-07-06 04:00 | disposition home or self-care (01) ==
PROVIDERS: Emergency Provider Emergency Medicine; PCP Nurse Practitioner
DX: T54.91XA Toxic effect of unspecified corrosive substance, accidental (unintentional), initial encounter (principal); S20.229A Contusion of unspecified back wall of thorax, initial encounter; W19.XXXA Unspecified fall, initial encounter
CPT/HCPCS: 71045; 72072; 99283

== ENCOUNTER → 2022-09-05 13:10 | Outpatient (BNVA) | payer MEDICARE, MEDICAID, SELFPAY ==
[2021-06-14 15:04] VITALS: BP 156/98; BMI 21.3
== END ==
PROVIDERS: PCP Nurse Practitioner; Visit Provider Podiatrist Foot & Ankle Surgery
DX: M20.41 Other hammer toe(s) (acquired), right foot (principal); M20.42 Other hammer toe(s) (acquired), left foot
CPT/HCPCS: 99213

== ENCOUNTER 2023-07-17 01:15 | Observation (INO) | payer MEDICARE, MEDICAID, SELFPAY ==
[2021-06-14 15:04] VITALS: BP 156/98; BMI 21.3
[2023-07-17] VITALS (33 sets, daily range): BP systolic 118–203; BP diastolic 74–151; PULSE 74–112; RESP 16–26; TEMP 35.9–37.8; O2SAT 92–100; BMI 15.9
--- NOTE | 2023-07-17 01:17 | XRR_ITS ---
PROCEDURE INFORMATION: Exam: XR Chest Exam date and time: 07/17/2023 1:28 AM Age: 63 years old Clinical indication: Chest pressure; Prior surgery; Surgery date: 6+ months; Surgery type: Gb; Patient HX: C/O chest pain; Additional info: Cp TECHNIQUE: Imaging protocol: Radiologic exam of the chest. Views: 1 view. COMPARISON: CR XR chest 1V portable [id number] 07/06/2022 2:51 AM FINDINGS: Lungs: Unremarkable. No consolidation. Pleural spaces: Unremarkable. No pleural effusion. No pneumothorax. Heart/Mediastinum: Unremarkable. No cardiomegaly. Bones/joints: Unremarkable. XR/XR chest 1V portable [id number] IMPRESSION: No acute findings.
[2023-07-17] MEDS: ondansetron 2 mg/ML SDV 2 mL 4 MG IVP (01:35)
[2023-07-17] MEDS: hyDRALAzine 20 mg/mL INJ 1 mL 10 MG IVP ×2 (01:37→02:18)
--- NOTE | 2023-07-17 01:39 | CTR_ITS ---
PROCEDURE INFORMATION: Exam: CTA Head With Contrast, Arteriography Exam date and time: 07/17/2023 1:59 AM Age: 63 years old Clinical indication: Stroke-like symptoms; Headache and visual disturbance; Additional info: BAUMAN TECHNIQUE: Imaging protocol: Computed tomographic angiography of the head with contrast. Exam focused on the arteries. 3D rendering (Not supervised by radiologist): MIP and/or 3D reconstructed images were created by the technologist. Radiation optimization: All CT scans at this facility use at least one of these dose optimization techniques: automated exposure control; mA and/or kV adjustment per patient size (includes targeted exams where dose is matched to clinical indication); or iterative reconstruction. Contrast material: OMNI 350; Contrast volume: 175 ml; Contrast route: INTRAVENOUS (IV); COMPARISON: CT head wo con* [id number] 07/17/2023 1:49 AM RADIATION DOSE METRICS: Total DLP (mGy-cm): 950.83 FINDINGS: ANTERIOR CIRCULATION: Right internal carotid artery: Intracranial segment is patent with no significant stenosis. No aneurysm. Right middle cerebral artery: No occlusion or significant stenosis. No aneurysm. Right anterior cerebral artery: No occlusion or significant stenosis. No aneurysm. Left internal carotid artery: Intracranial segment is patent with no significant stenosis. No aneurysm. Left middle cerebral artery: No occlusion or significant stenosis. No aneurysm. Left anterior cerebral artery: No occlusion or significant stenosis. No aneurysm. POSTERIOR CIRCULATION: Right vertebral artery: No occlusion or significant stenosis. No aneurysm. Left vertebral artery: No occlusion or significant stenosis. No aneurysm. Basilar artery: No occlusion or significant stenosis. No aneurysm. Right posterior cerebral artery: No occlusion or significant stenosis. No aneurysm. Left posterior cerebral artery: No occlusion or significant stenosis. No aneurysm. Brain: No definite mass, mass effect, or midline shift. Cerebral ventricles: No ventriculomegaly. Bones/joints: Unremarkable. No acute fracture. Soft tissues: Unremarkable. PROCEDURE INFORMATION: Exam: CTA Neck With Contrast Exam date and time: 07/17/2023 1:59 AM Age: 63 years old Clinical indication: Stroke-like symptoms; Headache and visual disturbance; Additional info: BAUMAN TECHNIQUE: Imaging protocol: Computed tomographic angiography of the neck with contrast. Exam focused on the cervical segments of the vasculature. 3D rendering (Not supervised by radiologist): MIP and/or 3D reconstructed images were created by the technologist. Radiation optimization: All CT scans at this facility use at least one of these dose optimization techniques: automated exposure control; mA and/or kV adjustment per patient size (includes targeted exams where dose is matched to clinical indication); or iterative reconstruction. Contrast material: OMNI 350; Contrast volume: 175 ml; Contrast route: INTRAVENOUS (IV); COMPARISON: CT head wo con* [id number] 07/17/2023 1:49 AM RADIATION DOSE METRICS: Total DLP (mGy-cm): 950.83 FINDINGS: Right common carotid artery: No significant stenosis. No dissection or occlusion. Right internal carotid artery: No significant stenosis of the extracranial segment. No dissection or occlusion. Right external carotid artery: No occlusion or significant stenosis of the origin. Left common carotid artery: No significant stenosis. No dissection or occlusion. Left internal carotid artery: No significant stenosis of the extracranial segment. No dissection or occlusion. Left external carotid artery: No occlusion or significant stenosis of the origin. Right vertebral artery: No significant stenosis. No dissection or occlusion. Left vertebral artery: No significant stenosis. No dissection or occlusion. Soft tissues: No significant soft tissue swelling. Bones/joints: No acute fracture. Multilevel degenerative disc disease without significant spinal canal stenosis.There are multilevel facet arthrosis and posterior hypertrophic bony changes with corresponding neural foraminal narrowing. CT/CT angio headneck* [id number] IMPRESSION: No large vessel occlusion or severe stenosis. IMPRESSION: 1. Normal right and left extracranial internal carotid arteries by NASCET criteria. 2. Patent bilateral vertebral arteries with a dominant right vertebral. REFERENCES: NASCET CRITERIA. The degree of stenosis in the cervical segment of the internal carotid artery is based on NASCET criteria. Normal is no stenosis. Mild is less than 50% stenosis. Moderate is 50-69% stenosis. Severe is 70% to 99% stenosis. Total occlusion is no detectable patent lumen.
--- NOTE | 2023-07-17 01:39 | CTR_ITS ---
PROCEDURE INFORMATION: Exam: CT Head Without Contrast Exam date and time: 07/17/2023 1:49 AM Age: 63 years old Clinical indication: Stroke-like symptoms; Headache and visual disturbance; Additional info: BAUMAN TECHNIQUE: Imaging protocol: Computed tomography of the head without contrast. Radiation optimization: All CT scans at this facility use at least one of these dose optimization techniques: automated exposure control; mA and/or kV adjustment per patient size (includes targeted exams where dose is matched to clinical indication); or iterative reconstruction. Other technique: STROKE PROTOCOL was implemented. COMPARISON: CT head wo/w con [id number] 03/11/2022 8:24 AM RADIATION DOSE METRICS: Total DLP (mGy-cm): 2037.08 FINDINGS: Brain: Loss of the rodriguez-white matter differentiation in the left occipital lobe. This is concerning for acute infarction. No intracranial hemorrhage. Cerebral ventricles: No ventriculomegaly. Paranasal sinuses: Visualized sinuses are unremarkable. No fluid levels. Mastoid air cells: Visualized mastoid air cells are well aerated. Bones/joints: Unremarkable. No acute fracture. Soft tissues: Unremarkable. CT/CT head wo con* [id number] IMPRESSION: 1. Loss of the rodriguez-white matter differentiation in the left occipital lobe. This is concerning for acute infarction. 2. No intracranial hemorrhage. ASSESSMENT: ASPECTS ([place] Stroke Program Early CT Score) is 10. pc-ASPECTS is 9. THIS REPORT CONTAINS FINDINGS THAT MAY BE CRITICAL TO PATIENT CARE. The findings were verbally communicated via telephone conference with CLAUDIA De Leon at 2:24 AM RECYCLING TECH on 07/17/2023. The findings were acknowledged and understood.
[2023-07-17 01:42] LABS: Glucose Point of Care 186 mg/dL (70-110)
[2023-07-17 01:43] LABS: Basophils % 0.1 %; Lymphocytes # 1.6 10^3/uL (0.8-4.8); Mean Corpuscular HGB Conc 33.6 g/dL (30-55); Mean Corpuscular Hemoglobin 30.8 pg (27-33); Mean Corpuscular Volume 91.7 fl (85-98); Mean Platelet Volume 8.9 fL (7.4-10.4); Monocytes # 0.7 10^3/uL (0.2-0.9); Monocytes % 5.2 %; Neutrophils # 11.95 10^3/uL (1.8-7.7); Neutrophils % 83.4 %; Nucleated Red Blood Cells % 0 %; Platelet Count 401 10^3/cmm (157-399); Red Blood Count 5.45 10^6/uL (3.85-5.65); Red Cell Distribution Width 12.8 % (12.1-15.1); White Blood Count 14.34 10^3/uL (3.29-11.43)
[2023-07-17 01:56] LABS: INR 0.97 (0.8-1.2)
--- NOTE | 2023-07-17 01:57 | W.ED.NAVMDI ---
HPI - Nausea/Vomiting/Diarrhea General: Chief complaint: Nausea/Vomiting/Diarrhea Stated complaint: vomit blood chest pain back pain Time Seen by Provider: 07/17/23 01:17 Source: patient Mode of arrival: ambulatory Limitations: no limitations History of Present Illness: 63-year-old female is here with multiple complaints she states she has had multiple episodes of vomiting throughout the day states has not been able to tolerate any fluids she states she been having epigastric abdominal pain also chest pain states that chest pain is sharp in nature she has had headaches as well she is hypertensive here. She states that she did vomit blood at home she states that she cannot see colors at times. Denies any slurred speech denies any difficulty walking. Patient had stated that she could see and then when she got back to the room at 130 that she cannot see Associated nausea: Yes Associated symtoms: Reports chest pain and nausea; Denies dysuria or headache(s) Review of Systems Const: Denies: fever(s), chills, body aches or change in appetite Eyes: Reports: blurry vision; Denies: eye discomfort ENMT: Denies: throat pain or dental pain Card: Reports: chest pain Resp: Denies: dyspnea GI: Reports: abdominal pain, nausea and vomiting; Denies: diarrhea : Denies: dysuria Musc: Denies: neck pain or back pain Skin/Breast: Denies: rash Neuro: Denies: headache(s) PFSH ED PFSH: Medical History (Updated 07/17/23 @ 04:57 by Claudia Britton MD) Diverticulosis Hypertension Hypothyroid Anxiety and depression GERD (gastroesophageal reflux disease) History of colon polyps Surgical History History of colonoscopy with polypectomy (~09/2019) History of colonoscopy (~2018) Hx of cholecystectomy 09/2018 History of bunionectomy of left great toe 2016 H/O arthroscopic knee surgery 1981 History of appendectomy 1976 H/O cystoscopy S/P ureteral stent placement Cystoscopy with the double-J ureteric stent placement per Dr. 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 Adopted: No Caregiver/support person: No Lives independently: Yes Household members: friend(s) Housing: Manufactured/Mobile home Marital status: Single Number of children: 0 Number of grandchildren: 0 Highest education level completed: Some College, No Degree service: No Current occupational status: retired and disabled Pets and animals: Yes (sneaky and traveler) Pets & animals: cat(s) and dog(s) Leisure activites: art, volunteer work and other Leisure activities details: go to river and look for arrow heads Sexually active: No Do you think of yourself as: Bisexual Current gender identity: Female Sakshi/Mandaen: Sabianism Special sakshi needs: No Agree to transfusion: Yes Female Reproductive History: Para: 0 Physical Exam Const: COMMON NORMALS: patient oriented x3 HENMT: COMMON NORMALS: normocephalic and atraumatic HEAD & SCALP: normocephalic and atraumatic Eye: COMMON NORMALS: Equal, round and reactive pupils present and EOMs intact bilaterally PUPIL: Yes Equal, round and reactive pupils present Neck/C-Spine: COMMON NORMALS: full ROM and supple Chest: COMMONS NORMALS: normal inspection of the chest and normal palpation of entire chest wall Resp: COMMON NORMALS: normal respiratory effort, No retractions, No use of accessory muscles and clear to auscultation bilaterally AUSCULTATION: clear to auscultation bilaterally Cardio: COMMON NORMALS: regular rate, regular rhythm and No murmurs present (Cardio) RATE: regular rate RHYTHM: regular rhythm GI: COMMON NORMALS: Normal to inspection, nondistended, normoactive bowel sounds present, Soft to palpation, non-tender and no masses PALPATION: Yes Soft to palpation Extremity: COMMON NORMALS: normal to inspection and full ROM Neuro: COMMON NORMALS: patient oriented x3, moves all extremities and no focal motor deficits SPEECH: speech normal MOTOR EXAM: 5/5 motor strength present throughout Psych: COMMON NORMALS: mental status grossly normal, Normal thought process present and cooperative THOUGHT PROCESS: Normal thought process present Skin: COMMON NORMALS: no rashes or lesions noted and no wounds GENERAL SKIN EXAM: no rashes or lesions noted Course Reevaluation(s): Reevaluation #1: Patient originally got here she stated that she could not see I did consult neurologist at [facility] he did not see any findings on the CT angio he did see some rodriguez-white differentiation on her CT head he did not recommend lytics as she has complained of vomiting blood she is not a thrombectomy candidate because her initial NIH was only 2 1 I went and reexamined her she can now see she could see me holding 2 fingers up from all the way across the room Time: 02:50 Vital Signs: Vital signs: Vital Signs Temperature 96.7 F L 07/17/23 01:31 Pulse Rate 89 07/17/23 02:15 Respiratory Rate 22 H 07/17/23 02:15 Blood Pressure 199/98 07/17/23 02:15 Pulse Oximetry 100 07/17/23 02:15 Oxygen Delivery Me thod Room Air 07/17/23 01:31 MDM - Nausea/Vomiting/Diarrhea Medical Decision Making Patient presents here with altered mental status and complaint of chest pain along with possible hematemesis no signs of hematemesis here hemoglobin is normal she had complained of not being will see but now she is able to see she did test positive for methamphetamine. CTA shows no acute findings I did speak to neurology she did not recommend lytics due to her vomiting blood she is not a thrombectomy candidate either due to CTA being normal and low NIH. Her neuroexam is changed here with her vision as well. She is quite hypertensive did give her Protonix spoke to the hospitalist will admit at this time Medical Records I reviewed the patient's medical records. Lab Data I reviewed the patient's lab results. 07/17/23 01:34 07/17/23 01:34 Radiology Impressions Chest X-Ray 07/17/23 01:17 IMPRESSION: No acute findings. Head CT 07/17/23 01:39 IMPRESSION: 1. Loss of the rodriguez-white matter differentiation in the left occipital lobe. This is concerning for acute infarction. 2. No intracranial hemorrhage. ASSESSMENT: ASPECTS ([place] Stroke Program Early CT Score) is 10. pc-ASPECTS is 9. THIS REPORT CONTAINS FINDINGS THAT MAY BE CRITICAL TO PATIENT CARE. The findings were verbally communicated via telephone conference with CLAUDIA De Leon at 2:24 AM PIECE MEAT TRIMMER on 07/17/2023. The findings were acknowledged and understood. Head/Neck CTA 07/17/23 01:39 IMPRESSION: No large vessel occlusion or severe stenosis. IMPRESSION: 1. Normal right and left extracranial internal carotid arteries by NASCET criteria. 2. Patent bilateral vertebral arteries with a dominant right vertebral. REFERENCES: NASCET CRITERIA. The degree of stenosis in the cervical segment of the internal carotid artery is based on NASCET criteria. Normal is no stenosis. Mild is less than 50% stenosis. Moderate is 50-69% stenosis. Severe is 70% to 99% stenosis. Total occlusion is no detectable patent lumen. ADDENDUM: 07/17/23 0311 Findings were discussed with CLAUDIA BRITTON at 07/17/2023 3:09 AM PIECE MEAT TRIMMER. Chest/Abdomen/Pelvis CTA 07/17/23 02:39 IMPRESSION: 1. No aortic aneurysm, dissection or penetrating ulcer. 2. Concentric thickening of the distal esophagus that contains fluid, suggestive of reflux esophagitis. Underline neoplasm is not excluded. 3. Marked thickening and hyperemia of the gastric and duodenal pittman consistent with severe gastroduodenitis. Underlying neoplasm is not excluded. Endoscopy may be helpful, if clinically indicated. Given history of hematemesis, this likely represents hemorrhagic gastritis. 4. Additional non emergent findings are stated in the body of the report. ADDENDUM: 07/17/23 0452 Findings were discussed with CLAUDIA BRITTON at 07/17/2023 4:50 AM PIECE MEAT TRIMMER. Laboratory Results WBC 14.34 10^3/uL (3.29-11.43) H 07/17/23 01:34 RBC 5.45 10^6/uL (3.85-5.65) 07/17/23 01:34 Hgb 16.80 g/dL (11.27-16.99) 07/17/23 01:34 Hct 50.0 % (36-47) H 07/17/23 01:34 MCV 91.7 fl (85-98) 07/17/23 01:34 MCH 30.8 pg (27-33) 07/17/23 01:34 MCHC 33.6 g/dL (30-55) 07/17/23 01:34 RDW 12.8 % (12.1-15.1) 07/17/23 01:34 Plt Count 401 10^3/cmm (157-399) H 07/17/23 01:34 MPV 8.9 fL (7.4-10.4) 07/17/23 01:34 Neut % (Auto) 83.4 % 07/17/23 01:34 Lymph % (Auto) 11.0 % 07/17/23 01:34 [place] % (Auto) 5.2 % 07/17/23 01:34 Eos % (Auto) 0.0 % 07/17/23 01:34 Baso % (Auto) 0.1 % 07/17/23 01:34 Neut # (Auto) 11.95 10^3/uL (1.8-7.7) H 07/17/23 01:34 Lymph # (Auto) 1.6 10^3/uL (0.8-4.8) 07/17/23 01:34 [place] # (Auto) 0.7 10^3/uL (0.2-0.9) 07/17/23 01:34 Eos # (Auto) 0.0 10^3/uL (0.0-0.8) 07/17/23 01:34 Baso # (Auto) 0.0 10^3/uL (0.0-0.1) 07/17/23 01:34 Nucleated RBC % (auto) 0 % 07/17/23 01:34 Nucleated RBCs # 0.0 /100WBC 07/17/23 01:34 PT 13.10 SECONDS (12.1-14.9) 07/17/23 01:34 INR 0.97 (0.8-1.2) 07/17/23 01:34 Sodium 131 mmol/L (136-145) L 07/17/23 01:34 Potassium 4.3 mmol/L (3.5-5.1) 07/17/23 01:34 Chloride 87 mmol/L (98-107) L 07/17/23 01:34 Carbon Dioxide 23 mmol/L (22-29) 07/17/23 01:34 Anion Gap 25.3 (5-19) H 07/17/23 01:34 BUN 23 mg/dL (8-23) 07/17/23 01:34 Creatinine 0.7 mg/dL (0.5-0.9) 07/17/23 01:34 GFR Calculation 84.2 mL/min (90-130) L 07/17/23 01:34 Glucose 165 mg/dL (65-115) H 07/17/23 01:34 POC Glucose 186 mg/dL (70-110) H 07/17/23 01:37 Calculated Osmolality 279 mOsm/kg (285-295) L 07/17/23 01:34 Calcium 9.6 mg/dL (8.5-10.5) 07/17/23 01:34 Total Bilirubin 0.7 mg/dL (0.15-1.2) 07/17/23 01:34 AST 21 U/L (0-32) 07/17/23 01:34 ALT 19 U/L (0-33) 07/17/23 01:34 Alkaline Phosphatase 123 U/L (35-105) H 07/17/23 01:34 Troponin T Baseline 12 ng/L (0-10) H 07/17/23 01:34 Troponin T 120 Minute 13.54 ng/L (0-10) H 07/17/23 03:20 Delta Troponin T 1.54 ABS# (0-10) 07/17/23 03:20 Total Protein 7.7 g/dL (6.6-8.7) 07/17/23 01:34 Albumin 4.7 g/dL (3.5-5.2) 07/17/23 01:34 Globulin 3.0 g/dL (1.3-4.6) 07/17/23 01:34 Lipase 75 U/L (13-60) H 07/17/23 01:34 Urine Color Yellow (Yellow) 07/17/23 02:54 Urine Appearance Sl hazy (CLEAR) A 07/17/23 02:54 Urine pH 7 (5-7) 07/17/23 02:54 Ur Specific [place] 1.000 (1.005-1.030) L 07/17/23 02:54 Urine Protein Trace (Negative) 07/17/23 02:54 Urine Glucose (UA) Norm (Normal) 07/17/23 02:54 Urine Ketones 1+ (Negative) H 07/17/23 02:54 Urine Blood Trace (Negative) H 07/17/23 02:54 Urine Nitrate Negative (Negative) 07/17/23 02:54 Urine Bilirubin Neg (Negative) 07/17/23 02:54 Urine Urobilinogen Norm mg/dL (Negative) 07/17/23 02:54 Ur Leukocyte Esterase 1+ (Negative) H 07/17/23 02:54 Urine RBC 0-4 /hpf (0-2) H 07/17/23 02:54 Urine WBC 5-10 /hpf (0-5) H 07/17/23 02:54 Ur Squamous Epith Cells 5-10 /hpf (0-5) H 07/17/23 02:54 Amorphous Sediment Not Reportable 07/17/23 02:54 Urine Bacteria Trace /hpf (NONE) 07/17/23 02:54 Urine Mucus 1+ /hpf 07/17/23 02:54 Urine Opiates Screen Negative ng/mL (Negative) 07/17/23 02:54 Ur Barbiturates Screen Negative ng/mL (Negative) 07/17/23 02:54 Ur Phencyclidine Scrn Negative ng/mL (Negative) 07/17/23 02:54 Ur Amphetamines Screen Positive ng/mL (Negative) H 07/17/23 02:54 U Benzodiazepines Scrn Negative ng/mL (Negative) 07/17/23 02:54 Urine Cocaine Screen Negative ng/mL (Negative) 07/17/23 02:54 U Marijuana (THC) Screen Positive ng/mL (Negative) H 07/17/23 02:54 All radiology interpretation(s) finalized by discharge EKG Data EKG 1: I personally reviewed and interpreted this EKG as follows: EKG interpretation date: 07/17/23 EKG interpretation time: 01:24 Interpretation: jaspal he [address] or t wave abnormalities qrs 92 qtc 423 Discharge Plan Discharge Patient Disposition: Admitted As Inpatient Clinical Impression: Altered mental status, Hypertension, Gastritis, Methamphetamine abuse Condition: Stable Prescriptions: No Action atorvastatin 10 mg tablet 10 mg PO DAILY lisinopril 5 mg tablet 5 mg PO DAILY levothyroxine 150 mcg capsule 75 mcg PO DAILY cholecalciferol (vitamin D3) 25 mcg (1,000 unit) capsule 50 mcg PO BID albuterol sulfate 90 mcg/actuation HFA aerosol inhaler 2 puff inhalation Q6H PRN (Reason: Shortness Of Breath) mecobalamin (vitamin B12) 10,000 mcg recon soln 10,000 mcg IM .monthly Rx Instructions: TAKES ON famotidine 20 mg tablet 20 mg PO DAILY citalopram 20 mg tablet 20 mg PO ONCE 90 Days Qty: 90 3RF (DME) Orthopedic Shoes with custom insoles See Rx Instructions .Route .MEDSUPPLY Qty: 1 0RF Rx Instructions: As directed BY HOME Referrals: Jen Cook APN [Primary Care Provider] - Coding Level of Care Code ED Hardening Machine Operator for Magalis Araya NIH stroke score NIHSS Level Of Consciousness - 1a: 0 Level Of Consciousness Questions - 1b: Both Correct Level Of Consciousness Commands - 1c: Both Correct Best Gaze - 2: Normal Visual Zhang - 3: Complete Hemianopia Facial Palsy - 4: Normal Motor Arm Right - 5: No Drift Motor Arm Left - 5: No Drift Motor Leg Right - 6: No Drift Motor Leg Left - 6: No Drift Limb Ataxia - 7: Absent Sensory - 8: Normal Best Language - 9: No Aphasia Dysarthia - 10: Normal Extinction And Inattention - 11: 0 Score Total Score: 2
[2023-07-17 02:07] LABS: Alanine Aminotransferase 19 U/L (0-33); Albumin Level 4.7 g/dL (3.5-5.2); Alkaline Phosphatase 123 U/L (35-105); Blood Urea Nitrogen 23 mg/dL (8-23); Calcium 9.6 mg/dL (8.5-10.5); Carbon Dioxide 23 mmol/L (22-29); Chloride 87 mmol/L (98-107); Creatinine Clr Calc Pharmacy 52.3247; Glomerular Filtration Rate 84.2 mL/min (90-130); Glucose 165 mg/dL (65-115); Lipase 75 U/L (13-60); Osmolality Calculated 279 mOsm/kg (285-295); Sodium 131 mmol/L (136-145); Total Bilirubin 0.7 mg/dL (0.15-1.2); Total Protein 7.7 g/dL (6.6-8.7)
[2023-07-17 02:10] LABS: Troponin(5th) Baseline 12 ng/L (0-10)
[2023-07-17] MEDS: iohexol 350 mg/mL 500 mL Btl (per mL) IV ×2 (02:12→03:13)
[2023-07-17 02:15] LABS: Anion Gap 25.3 (5-19); Aspartate Amino Transferase 21 U/L (0-32); Potassium 4.3 mmol/L (3.5-5.1)
--- NOTE | 2023-07-17 02:39 | CTR_ITS ---
PROCEDURE INFORMATION: Exam: CTA Chest With Contrast CTA Abdomen and Pelvis With Contrast Exam date and time: 07/17/2023 2:59 AM Age: 63 years old Clinical indication: Prior surgery; Surgery date: 6+ months; Surgery type: Gb. Appy. Ureteral stent. Sigmoidectomy. Patient HX: PT now C/O chest pain radiating into back with an episode of hematemesis prior to er arrival. ; Additional info: Cp/ R/O dissection TECHNIQUE: Imaging protocol: Computed tomographic angiography of the chest with contrast. Exam focused on the arteries. Computed tomographic angiography of the abdomen and pelvis with contrast. Exam focused on the arteries. 3D rendering (Not supervised by radiologist): MIP and/or 3D reconstructed images were created by the technologist. Radiation optimization: All CT scans at this facility use at least one of these dose optimization techniques: automated exposure control; mA and/or kV adjustment per patient size (includes targeted exams where dose is matched to clinical indication); or iterative reconstruction. Contrast material: OMNI 350; Contrast volume: 50 ml; Contrast route: INTRAVENOUS (IV); COMPARISON: CT abdomen pelvis w con* [id number] 05/25/2018 2:38 PM RADIATION DOSE METRICS: Total DLP (mGy-cm): 618.99 FINDINGS: Limitations: Streak and motion artifacts limit evaluation. VASCULATURE: Pulmonary arteries: Evaluation of the pulmonary arteries is severely limited by streak and motion artifact.. Aorta: There is no aortic aneurysm, dissection or penetrating ulcer. The abdominal aorta is mildly tortuous. Celiac trunk and mesenteric arteries: There are mild stenoses at the origins of the celiac trunk and SMA. The WALT is not visualized and may be occluded at its origin. Renal arteries: Mild stenosis at the origin of the left main renal artery. Widely patent right main renal artery. Right iliac arteries: No occlusion or significant stenosis. Left iliac arteries: No occlusion or significant stenosis. CHEST: Lungs: No pulmonary consolidation. Pleural spaces: Unremarkable. No pneumothorax. No pleural effusion. Heart: Unremarkable. No cardiomegaly. No pericardial effusion. Mediastinal space: Concentric thickening of the distal esophagus that contains fluid, suggestive of reflux esophagitis. Diaphragm: There is a small sliding hiatal hernia. ABDOMEN AND PELVIS: Liver: The liver is normal in size. There are no enhancing liver masses. Gallbladder and bile ducts: There has been a cholecystectomy. There is no evidence of biliary ductal dilation. Pancreas: Unremarkable. No mass. No ductal dilation. Spleen: Unremarkable. No splenomegaly. Adrenal glands: Unremarkable. No mass. Kidneys and ureters: There is no hydronephrosis. No renal or obstructive ureteral calculi are identified. Stomach and bowel: Marked thickening of the gastric and duodenal pittman consistent with severe gastroduodenitis. Appendix: Prior appendectomy. Intraperitoneal space: Unremarkable. No free air. No significant fluid collection. Urinary bladder: There is a small left bladder diverticulum.There is no evidence of small bowel or colonic obstruction. Reproductive: Unremarkable as visualized. Lymph nodes: There are juxtapleural calcified granulomas or lymph nodes in the right middle lobe and right upper lobe. Bones/joints: Chronic appearing superior endplate compression fracture of T6 at the site of a Schmorl's node. There is no retropulsion. There is motion artifact on the sternum. Multilevel degenerative disc disease without significant spinal canal stenosis. Grade 1 retrolisthesis of L2 on L3 without associated fracture, presumed to be degenerative related. Soft tissues: Unremarkable. CT/CT [facility] [id number] IMPRESSION: 1. No aortic aneurysm, dissection or penetrating ulcer. 2. Concentric thickening of the distal esophagus that contains fluid, suggestive of reflux esophagitis. Underline neoplasm is not excluded. 3. Marked thickening and hyperemia of the gastric and duodenal pittman consistent with severe gastroduodenitis. Underlying neoplasm is not excluded. Endoscopy may be helpful, if clinically indicated. Given history of hematemesis, this likely represents hemorrhagic gastritis. 4. Additional non emergent findings are stated in the body of the report.
[2023-07-17 03:13] LABS: Add Urine Microscopic? YES; Bilirubin Urine Neg (Negative); Blood Urine Trace (Negative); Glucose Urine UA Norm (Normal); Ketones Urine 1+ (Negative); Leukocyte Esterase Urine 1+ (Negative); Nitrate Urine Negative (Negative); Protein Urine Trace (Negative); Urine Appearance SL Hazy (CLEAR); Urine Color Yellow (Yellow); Urobilinogen Urine Norm (Negative); pH Urine 7 (5-7)
--- NOTE | 2023-07-17 03:17 | ECG_ITS ---
[facility] Test Date: 2023-07-17 Pat Name: Ankita Cervantes Department: Room: Gender: Female Bus Operator: : 1960 Requested By: Corona Smith Order Number: [id number] Iliana MD: Elfego Nettles M.D. Measurements Intervals [place] Rate: 97 P: 24 [place]: 261 QRS: 33 QRSD: 186 T: 60 QT: 475 QTc: 604 Interpretive Statements SINUS RHYTHM WITH FIRST DEGREE AV BLOCK INTRAVENTRICULAR CONDUCTION DELAY [130+ ms QRS DURATION] Compared to ECG 06/13/2018 06:08:01 First degree AV block now present Intraventricular conduction delay now present Sinus tachycardia no longer present Electronically Signed On 07-17-2023 9:50:31 ADMISSIONS EVALUATOR by Elfego Nettles M.D. [id number]
[2023-07-17 03:21] LABS: Bacteria Urine TRACE /hpf; Mucus Urine 1+ /hpf; RBC Urine 0-4 /hpf (0-2)
[2023-07-17 03:22] LABS: Amphetamines Screen Urine Positive (Negative); Barbiturates Screen Urine Negative (Negative); Benzodiazepines Screen Urine Negative (Negative); Cocaine Screen Urine Negative (Negative); Opiate Screen Urine Negative (Negative); PCP Screen Urine Negative (Negative); THC Screen Urine Positive (Negative)
[2023-07-17 03:43] LABS: Troponin 5 2HR 13.54 ng/L (0-10); Troponin 5 2HR Delta 1.54 ABS# (0-10)
[2023-07-17] MEDS: pantoprazole 40 mg SDV 80 MG IVP (05:04)
[2023-07-17 05:14] LABS: Alcohol Level < 10 mg/dL (0-10)
--- NOTE | 2023-07-17 06:08 | P.HP_ITS ---
Providers/Chief Complaint 2 Admitting Physician: Sherman Chavez Primary Care Provider: Jen Cook APN Chief Complaint: vomit blood chest pain back pain History of Present Illness 63-year-old lady with history of hypertension, hypothyroidism, GERD, other medical problems came into ER for evaluation due to multiple episodes of vomiting, epigastric pain, reported vomiting blood at home, additionally having chest pain. On presentation very hypertensive. Received Protonix, hydralazine. Additionally reported vision changes, and stated could not see. CT of the head and CTA head and neck were obtained, discussed by ER physician with neurology. CT head findings concerning for occipital loss of rodriguez-white differentiation, possible CVA. CT angiogram without large vessel obstruction. No intervention recommended. CT chest abdomen pelvis also obtained without aortic dissection or penetrating ulcer, concentric thickening of distal esophagus containing fluid suggestive of reflux esophagitis, underlying neoplasm not excluded. Marked thickening and hyperemia of gastric and duodenal pittman, consistent with severe gastroduodenitis, underlying neoplasm not excluded. Endoscopy may be helpful. Additional nonemergent findings. In ER also with transient confusion, restlessness, but improved, now calm, providing history. Chest pain so far has resolved. Review of Systems 2 Const: Denies: fever(s), chills, body aches or malaise Eyes: Reports: change in vision ENMT: Denies: throat pain Card: Reports: chest pain; Denies: edema, pre-syncope or dyspnea on exertion Resp: Denies: dyspnea, productive cough, change in phlegm color or hemoptysis GI: Reports: nausea and vomiting; Denies: abdominal pain, diarrhea, constipation, hematochezia or melena : Denies: flank pain, urinary frequency or hematuria Musc: Denies: back pain, joint swelling or joint redness Skin/Breast: Denies: rash or new lesions Neuro: Denies: headache(s), numbness in extremities, weakness in extremities, dizziness, confusion or seizure-like activity Medications/Allergies Home Medications Medication Instructions Recorded Confirmed Last Taken Type atorvastatin 10 mg tablet 10 mg PO DAILY 10/24/19 09/05/22 07/28/21 History lisinopril 5 mg tablet 5 mg PO DAILY 10/24/19 09/05/22 07/28/21 History cholecalciferol (vitamin D3) 25 50 mcg PO BID 05/13/20 09/05/22 07/28/21 History mcg (1,000 unit) capsule levothyroxine 150 mcg capsule 75 mcg PO DAILY 05/13/20 09/05/22 07/28/21 History albuterol sulfate 90 mcg/actuation 2 puff inhalation Q6H PRN 06/11/21 09/05/22 07/28/21 History aerosol inhaler Shortness Of Breath famotidine 20 mg tablet 20 mg PO DAILY 06/11/21 09/05/22 07/28/21 History mecobalamin (vitamin B12) 10,000 10,000 mcg IM .monthly 06/11/21 09/05/22 07/28/21 History mcg solution for injection citalopram 20 mg tablet 20 mg PO ONCE 90 days #90 tabs 04/13/22 09/05/22 Unknown Rx Orthopedic Shoes with custom #1 ea 09/05/22 09/05/22 Unknown Rx insoles Allergies Allergy/AdvReac Type Severity Reaction Status Date / Time meperidine [From Demerol] Allergy Unknown Verified 09/05/22 13:20 PFSH Acute 2 PFSH: Medical History Diverticulosis Hypertension Hypothyroid Anxiety and depression GERD (gastroesophageal reflux disease) History of colon polyps Surgical History History of colonoscopy with polypectomy (~09/2019) History of colonoscopy (~2018) Hx of cholecystectomy 09/2018 History of bunionectomy of left great toe 2016 H/O arthroscopic knee surgery 1981 History of appendectomy 1976 H/O cystoscopy S/P ureteral stent placement Cystoscopy with the double-J ureteric stent placement per Dr. 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 Adopted: No Caregiver/support person: No Lives independently: Yes Household members: friend(s) Housing: Manufactured/Mobile home Marital status: Single Number of children: 0 Number of grandchildren: 0 Highest education level completed: Some College, No Degree service: No Current occupational status: retired and disabled Pets and animals: Yes (sneaky and traveler) Pets & animals: cat(s) and dog(s) Leisure activites: art, volunteer work and other Leisure activities details: go to river and look for arrow heads Sexually active: No Do you think of yourself as: Bisexual Current gender identity: Female Sakshi/Confucianist: Gnosticist Special sakshi needs: No Agree to transfusion: Yes Female Reproductive History: Para: 0 Vitals/I&O/Wt Last Vital Signs Temp 96.7 F L 07/17/23 01:31 Pulse 100 07/17/23 05:15 Resp 22 H 07/17/23 05:15 BP 154/94 07/17/23 05:15 Pulse Ox 97 07/17/23 05:15 O2 Del Method Room Air 07/17/23 01:31 Weight last 48 hrs Weight 40.823 kg Physical Exam 2 Const: GENERAL APPEARANCE: cooperative OTHER: Sleeping, wakes up to voice. HENMT: COMMON NORMALS: oropharynx normal Neck/C-Spine: COMMON NORMALS: no JVD Resp: COMMON NORMALS: normal respiratory effort and clear to auscultation bilaterally AUSCULTATION: clear to auscultation bilaterally Cardio: COMMON NORMALS: no JVD, regular rhythm, S1 normal heart sound present, S2 normal heart sound present and No murmurs present (Cardio) RHYTHM: regular rhythm HEART SOUNDS: S1 normal heart sound present and S2 normal heart sound present GI: COMMON NORMALS: Normal to inspection, nondistended, normoactive bowel sounds present, Soft to palpation and non-tender PALPATION: Yes Soft to palpation Extremity: COMMON NORMALS: no joint enlargement and no pedal edema Neuro: COMMON NORMALS: patient oriented x3 and moves all extremities S ENSORIUM/ORIENTATION: Yes alert OTHER: When she woke up remains alert, follows directions. I do not appreciate facial droop. No detectable slurred speech or aphasia. No difficulty tracking horizontally. Visual garcia full to confrontation, no difficulty counting fingers at 2 feet. No visual extinction. No upper or lower extremity drift. Sensory exam symmetrical, no sensory extinction. Skin: COMMON NORMALS: no rashes or lesions noted GENERAL SKIN EXAM: no rashes or lesions noted Data 07/17/23 01:34 07/17/23 01:34 A&P Assessment and plan (1) Hematemesis: Recurrent vomiting at home, reported vomiting blood. Reviewed vitals, CBC, INR, CMP, CT chest abdomen pelvis, discussed with ER physician. Additional concern for CVA, not a candidate for TNK. Received IV PPI, continue IV Protonix every 12 hours. N.p.o. at this time. Recheck hemoglobin at interval. Monitor for further hematemesis, monitor hemodynamic condition. Once stable in terms of hemodynamics and stroke, will need endoscopic evaluation given marked thickening and hyperemia of gastric and duodenal pittman consistent with severe gastroduodenitis, malignancy not excluded, as well as concentric thickening of distal esophagus containing fluid, underlying neoplasm not excluded. (2) CVA (cerebral vascular accident): Suspected CVA after reported vision changes, transient loss of vision, noted loss of differentiation of rodriguez-white matter in occipital lobe. Very hypertensive on presentation. Additionally amphetamine use, smoking, denies injection. Discussed abstinence from amphetamine, further risk of severe/life- threatening cardiovascular complications. Not a candidate for TNK due to hematemesis. Did not yet start antiplatelet due to the same. Follow-up for any further hematemesis, started on PPI, hemoglobin reassessment requested. In case remained stable, consider additional possibly Plavix without loading dose. Did request MRI brain. No large vessel stenosis on CTA. Additional workup with echocardiogram bubble study. PT, OT, ST evaluation. Case management consult. Continue to medication of cardiovascular risk factors, in her case particularly avoidance of offending, as well as optimization of control of hypertension. Permissive hypertension for now, avoid further antihypertensives for now unless blood pressure exceeding 220/120. Will also need to follow-up with neurology. (3) Chest pain: So far resolved, possibly related to severe hypertension on presentation. Complete troponin EKG series, so far minimal troponin elevation. EKG reviewed, without evidence of acute ischemia on my interpretation. Echocardiogram as above. (4) Amphetamine use: Discussed with her abstinence from amphetamine, potential severe/life- threatening cardiovascular and other complications. Case management consultation for resources for rehabilitation. Continue to encourage abstinence. Monitor for any symptoms of withdrawal. (5) Gastritis: Once stable in terms of hemodynamics and stroke, will need endoscopic evaluation given marked thickening and hyperemia of gastric and duodenal pittman consistent with severe gastroduodenitis, malignancy not excluded, as well as concentric thickening of distal esophagus containing fluid, underlying neoplasm not excluded. (6) Esophagitis: Malignancy not excluded, will need further evaluation. PPI. (7) Duodenitis: Malignancy not excluded, will need further evaluation. PPI. Plan Contaminated UA: Requested repeat sample. HTN: Monitor blood pressures. Permissive hypertension at current time. Will need optimization of blood pressure control going forward. Hypothyroidism: Requested to confirm home medications, resume levothyroxine once available. GERD: As above Other medical problems Requested home medications to be confirmed, please review and reconcile once available. Attestations 2 Medical Necessity Statement*: Admission of over 2 midnights anticipated for assessment management of GI bleeding, suspected severe gastroduodenitis, esophagitis, malignancy not excluded, CVA, chest pain, in a lady with amphetamine use, additional, but it is as above. Diagnoses Hematemesis K92.0 CVA (cerebral vascular accident) I63.9 Chest pain R07.9 Amphetamine use F15.90 Gastritis K29.70 Esophagitis K20.90 Duodenitis K29.80
--- NOTE | 2023-07-17 07:17 | ECG_ITS ---
[facility] Test Date: 2023-07-17 Pat Name: Ankita Cervantes Department: Room: 254 Gender: Female Nurse College: : 1960 Requested By: Corona Smith Order Number: [id number] Iliana MD: Elfego Nettles M.D. Measurements Intervals Crosby Rate: 91 P: 0 NM: 0 QRS: 28 QRSD: 96 T: 54 QT: 395 QTc: 487 Interpretive Statements ECTOPIC ATRIAL RHYTHM Compared to ECG 07/17/2023 03:49:01 Sinus rhythm no longer present First degree AV block no longer present Intraventricular conduction delay no longer present Electronically Signed On 07-17-2023 9:50:09 CARDIOLOGY PHYSICIAN by Elfego Nettles M.D. [id number]
--- NOTE | 2023-07-17 07:58 | MR_ITS ---
WS: [id number] MRI BRAIN WITHOUT CONTRAST HISTORY: cva COMPARISON: CT head 07/17/2023 TECHNIQUE: Diffusion imaging, multiplanar T1, T2 and FLAIR imaging obtained. Diffusion imaging is normal. Seen best on the T2 and FLAIR sequences is increased signal in the occip ital lobes bilaterally. Slightly greater increased T2 signal in the cortex of the LEFT occipital lobe . This is a bilateral finding. There are scattered additional areas of increased T2 signal in the RIG HT frontal, posterior LEFT frontal and LEFT paramedian supratentorial white matter. There is no hemor rhage. No edema or midline shift. No hippocampal atrophy. No remote or acute infarcts are volume loss. Ventricles and extra-axial spaces are normal. No inferior displacement of cerebellar tonsils. The sella turcica and pituitary gland are unremarkabl e. Dural venous sinuses and chitimacha of Pereyra demonstrate no abnormality on this unenhanced studies. Paranasal sinuses: Clear. Mastoid air cells: Normal. Calvarium and scalp: Intact. IMPRESSION: 1. Findings most consistent with PRES, posterior reversible encephalopathy syndrome. Correlate with recent history of acute hypertensive episodes. 2. No acute hemorrhage and no diffusion abnormality.
--- NOTE | 2023-07-17 07:58 | USCV_ITS ---
Kyle, [place] Age: 63 Gender: F : 1960 Exam Date: 07/17/2023 13:09 Ordering Phys: Sherman Chavez MD Technologist: Exam Location: [facility] [place] Indication: CVA- BP: / HR: Rhythm: Sinus Technical Quality: Adequate MEASUREMENTS (Male / Female) Normal Values 2D ECHO LV Ejection Fraction MOD 2C 76.1 % IVC Diameter 1.3 cm DOPPLER AV Peak Velocity 193.0 cm/s LVOT Peak Velocity 149.0 cm/s MV Area PHT 3.6 cm squared Mitral E to A Ratio 0.8 TR Peak Velocity 274.0 cm/s TR Peak Gradient 30.0 mmHg Right Atrial Pressure 3.0 mmHg Pulmonary Artery Systolic Pressu 33.0 mmHg PV Peak Velocity 130.0 cm/s FINDINGS Left Ventricle Left ventricle is normal size. LV systolic function is normal with EF of 65 to 70%. No regional wall motion abnormalities are seen. Grade 1 diastolic dysfunction Right Ventricle Normal in size and function Right Atrium Normal in size Left Atrium Normal in size. Bubble study is limited quality however no right to left is apparent Mitral Valve Structurally normal mitral valve. Mild mitral regurgitation. Aortic Valve Structurally normal aortic valve. No significant stenosis. Tricuspid Valve Mild tricuspid regurgitation. Pulmonary artery systolic pressure is normal. Pulmonic Valve Not well visualized Pericardium Normal Aorta Normal in size IVC Appears to be normal CONCLUSIONS LV systolic function is normal with EF 65 to 70% Grade 1 diastolic dysfunction Bubble study is limited quality however no right to left is apparent Mild mitral regurgitation Mild tricuspid regurgitation No comparison studies are available. Elfego Nettles MD (Electronically Signed) Final Date: 17 July 2023 17:00 S
[2023-07-17 09:01] LABS: Troponin 5 6HR 34.94 ng/L (0-10)
[2023-07-17 09:08] LABS: Chol HDL Ratio 2.78 mg/dL (0.0-4.40); Cholesterol 167 mg/dL (0-200); HDL Cholesterol 60 mg/dL (60-100); LDL Cholesterol Calculated 94 mg/dL (50-129); LDL HDL Ratio 1.57 RATIO (0.00-3.22); Triglycerides 66 mg/dL (0-150)
[2023-07-17 09:29] LABS: Troponin 5 6HR Delta 22.94 ng/L (0-12)
[2023-07-17] MEDS: dextrose 5%-sod chloride 0.9% 1,000 ML 100 ML IV ×2 (09:40→23:28)
--- NOTE | 2023-07-17 10:01 | W.PM.EVENTAC ---
Event Note Event Note: Dr. Holden consulted for upper GI bleed Patient is n.p.o. Continue Protonix I will add D5 normal saline Troponin delta noted not a candidate to be on any anticoagulating agent No active chest pain Lives alone Dehydrated Will request physical therapy once we do EGD Hemoglobin stable It could be hemoconcentration
[2023-07-17] MEDS: cefTRIAXone 2,000 MG in sodium chloride 0.9% (plus) 50 ML 100 MG IV (10:31)
--- NOTE | 2023-07-17 11:34 | PC.NURSE ---
patient wheeled off unit to GI lab on [facility].
[2023-07-17] MEDS: sodium chloride 0.9% 1,000 ML 30 ML IV (11:59)
--- NOTE | 2023-07-17 12:01 | P.ANESASSM_ITS ---
Pre-Anesthetic Assessment Height/Weight: Height 1.6 m Weight 49.895 kg Temp Pulse Resp BP Pulse Ox O2 Del Method O2 Flow Rate 98.4 F 84 18 158/107 97 Nasal Cannula 2 07/17/23 11:43 07/17/23 11:43 07/17/23 11:43 07/17/23 11:43 07/17/23 11:43 07/17/23 11:43 07/17/23 11:43 Operation Date: 07/17/23 12:15 Proposed Procedures p EGD(Not Applicable) - Gordy Holden DO Familial anesthetic complications: None Was Beta José Manuel taken within 24 hours: N/A Was Clonidine taken within 24 hours: N/A Last intake: Intake Last Liquid Date 07/17/23 Last Liquid Time 20:00 Last Solid Date 07/16/23 Social No alcohol and No tobacco Exam alert, oriented x 3, clear to auscultation bilaterally and regular rate & rhythm Airway Mallampati: Class II Dentition: full CV/HEM Hypertension chest pains with rise in troponins, unable to be anticoagulated currently due to GI bleed GI No vomiting since last night before she arrived in hospital, denies any current nausea Metabolic Hyperlipidemia and Thyroid Disease Anesthetic Plan ASA status: 3 Anesthesia: MAC Other: MAC for rising troponins in setting of chest pain and no recent vomiting/nausea. Risk of > 500 ml blood loss (7ml/kg in children): No Medications/Allergies Home Medications Medication Instructions Recorded Confirmed Last Taken Type atorvastatin 10 mg tablet 10 mg PO DAILY 10/24/19 07/17/23 07/16/23 History lisinopril 5 mg tablet 5 mg PO DAILY 10/24/19 07/17/23 07/16/23 History albuterol sulfate 90 mcg/actuation 2 puff inhalation Q6H PRN 06/11/21 07/17/23 07/28/21 History aerosol inhaler Shortness Of Breath Orthopedic Shoes with custom #1 ea 09/05/22 07/17/23 Unknown Rx insoles citalopram 20 mg tablet 20 mg PO DAILY 07/17/23 07/17/23 07/16/23 History gabapentin 600 mg tablet 600 mg PO TID 07/17/23 07/17/23 07/16/23 History levothyroxine 100 mcg tablet 100 mcg PO DAILY 07/17/23 07/17/23 07/16/23 History Allergies Allergy/AdvReac Type Severity Reaction Status Date / Time meperidine [From Demerol] Allergy Unknown Verified 09/05/22 13:20 Current Medications Generic Name Dose Route Start Last Admin Trade Name Ariq PRN Reason Stop Dose Admin Dextrose/Sodium Chloride 1,000 mls @ 100 mls/hr 07/17/23 09:00 07/17/23 09:40 Dextrose 5%-Sod Chloride 0.9% IV 100 mls/hr .Q10H CHADD Administration Sodium Chloride 1,000 mls @ 30 mls/hr 07/17/23 11:45 07/17/23 11:59 Sodium Chloride 0.9% IV 07/18/23 11:44 30 mls/hr .Q24H CHADD Administration PFSH Anesthesia Medical History Diverticulosis Hypertension Hypothyroid Anxiety and depression GERD (gastroesophageal reflux disease) History of colon polyps Surgical History History of colonoscopy with polypectomy (~09/2019) History of colonoscopy (~2018) Hx of cholecystectomy 09/2018 History of bunionectomy of left great toe 2016 H/O arthroscopic knee surgery 1981 History of appendectomy 1976 H/O cystoscopy S/P ureteral stent placement Cystoscopy with the double-J ureteric stent placement per Dr. 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 Adopted: No Caregiver/support person: No Lives independently: Yes Household members: friend(s) Housing: Manufactured/Mobile home Marital status: Single Number of children: 0 Number of grandchildren: 0 Highest education level completed: Some College, No Degree service: No Current occupational status: retired and disabled Pets and animals: Yes (sneaky and traveler) Pets & animals: cat(s) and dog(s) Leisure activites: art, volunteer work and other Leisure activities details: go to river and look for arrow heads Sexually active: No Do you think of yourself as: Bisexual Current gender identity: Female Sakshi/Hindu: Christianity Special sakshi needs: No Agree to transfusion: Yes Female Reproductive History Para: 0 Data Anesthesia 07/17/23 08:06 07/17/23 01:34 Short CBC 07/17/23 07/17/23 Range/Units 01:34 08:06 WBC 14.34 H (3.29-11.43) 10^3/uL Hgb 16.80 16.30 (11.27-16.99) g/dL Hct 50.0 H (36-47) % MCV 91.7 (85-98) fl Plt Count 401 H (157-399) 10^3/cmm Neut % (Auto) 83.4 % Neut # (Auto) 11.95 H (1.8-7.7) 10^3/uL BMP 07/17/23 01:34 Sodium 131 L Potassium 4.3 Chloride 87 L Carbon Dioxide 23 BUN 23 Creatinine 0.7 Glucose 165 H Calcium 9.6 Cardiac Enzymes 07/17/23 07/17/23 07/17/23 Range/Units 01:34 03:20 08:06 Troponin T Baseline 12 H (0-10) ng/L Troponin T 120 Minute 13.54 H (0-10) ng/L Delta Troponin T 1.54 (0-10) ABS# Troponin T Hi Sens 6Hr 34.94 H (0-10) ng/L Troponin T Hi Sens 6Hr Delta 22.94 H* (0-12) ng/L Liver Function 07/17/23 Range/Units 01:34 Total Bilirubin 0.7 (0.15-1.2) mg/dL AST 21 (0-32) U/L ALT 19 (0-33) U/L Alkaline Phosphatase 123 H (35-105) U/L Albumin 4.7 (3.5-5.2) g/dL Urine 07/17/23 Range/Units 02:54 Urine Color Yellow (Yellow) Urine Appearance Sl hazy A (CLEAR) Urine pH 7 (5-7) Ur Specific [place] 1.000 L (1.005-1.030) Urine Protein Trace (Negative) Urine Glucose (UA) Norm (Normal) Urine Ketones 1+ H (Negative) Urine Nitrate Negative (Negative) Urine Bilirubin Neg (Negative) Ur Leukocyte Esterase 1+ H (Negative) Urine RBC 0-4 H (0-2) /hpf Urine WBC 5-10 H (0-5) /hpf Coags 07/17/23 01:34 PT 13.10 INR 0.97 Cardiac Studies: 2 No Data to Display
--- NOTE | 2023-07-17 12:05 | P.CONIM_ITS ---
Providers/Reason For Consult 2 Consulting Physician/Specialty*: Dr. Gordy Holden, DO/General surgery Reason for Consult*: Abdominal pain and hematemesis Attending Physician: Joe Perera MD Primary Care Provider: Jen Cook APN History of Present Illness History of Present Illness Ankita Cervantes is a 63 year old female who presented to the hospital last night with 1 day history of hematemesis. She reports that she is also had periumbilical abdominal pain which is dull and intermittent. Nothing seems to make the pain better or worse and it does not radiate. She reports that she has had acid reflux for many years but does not take anything for this. She denies any diarrhea, constipation, hematochezia and/or melena. CT of the abdomen and pelvis shows changes in the distal esophagus consistent with reflux along with inflammation of the stomach and duodenum consistent with possible hemorrhagic gastritis. Review of Systems 2 General: Reports: 10 or more systems reviewed and unremarkable except in HPI and below Medications/Allergies Home Medications Medication Instructions Recorded Confirmed Last Taken Type atorvastatin 10 mg tablet 10 mg PO DAILY 10/24/19 07/17/23 07/16/23 History lisinopril 5 mg tablet 5 mg PO DAILY 10/24/19 07/17/23 07/16/23 History albuterol sulfate 90 mcg/actuation 2 puff inhalation Q6H PRN 06/11/21 07/17/23 07/28/21 History aerosol inhaler Shortness Of Breath Orthopedic Shoes with custom #1 ea 09/05/22 07/17/23 Unknown Rx insoles citalopram 20 mg tablet 20 mg PO DAILY 07/17/23 07/17/23 07/16/23 History gabapentin 600 mg tablet 600 mg PO TID 07/17/23 07/17/23 07/16/23 History levothyroxine 100 mcg tablet 100 mcg PO DAILY 07/17/23 07/17/23 07/16/23 History Allergies Allergy/AdvReac Type Severity Reaction Status Date / Time meperidine [From Demerol] Allergy Unknown Verified 09/05/22 13:20 Current Medications Generic Name Dose Route Start Last Admin Trade Name Freq PRN Reason Stop Dose Admin Dextrose/Sodium Chloride 1,000 mls @ 100 mls/hr 07/17/23 09:00 07/17/23 09:40 Dextrose 5%-Sod Chloride 0.9% IV 100 mls/hr .Q10H CHADD Administration Sodium Chloride 1,000 mls @ 30 mls/hr 07/17/23 11:45 07/17/23 11:59 Sodium Chloride 0.9% IV 07/18/23 11:44 30 mls/hr .Q24H CHADD Administration PFSH Acute 2 PFSH: Medical History Diverticulosis Hypertension Hypothyroid Anxiety and depression GERD (gastroesophageal reflux disease) History of colon polyps Surgical History History of colonoscopy with polypectomy (~09/2019) History of colonoscopy (~2018) Hx of cholecystectomy 09/2018 History of bunionectomy of left great toe 2016 H/O arthroscopic knee surgery 1981 History of appendectomy 1976 H/O cystoscopy S/P ureteral stent placement Cystoscopy with the double-J ureteric stent placement per Dr. 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 Adopted: No Caregiver/support person: No Lives independently: Yes Household members: friend(s) Housing: Manufactured/Mobile home Marital status: Single Number of children: 0 Number of grandchildren: 0 Highest education level completed: Some College, No Degree service: No Current occupational status: retired and disabled Pets and animals: Yes (sneaky and traveler) Pets & animals: cat(s) and dog(s) Leisure activites: art, volunteer work and other Leisure activities details: go to river and look for arrow heads Sexually active: No Do you think of yourself as: Bisexual Current gender identity: Female Sakshi/Islam: Shinto Special sakshi needs: No Agree to transfusion: Yes Female Reproductive History: Para: 0 Vitals/I&O/Wt Last Vital Signs Temp 98.4 F 07/17/23 11:43 Pulse 84 07/17/23 11:43 Resp 18 07/17/23 11:43 BP 158/107 07/17/23 11:43 Pulse Ox 97 07/17/23 11:43 O2 Del Method Nasal Cannula 07/17/23 11:43 O2 Flow Rate 2 07/17/23 11:43 07/16/23 07/17/23 07/17/23 22:59 06:59 14:59 Intake Total 50 / 50 Balance 50 / 50 Weight last 48 hrs Weight 110 lb Weight 90 lb Physical Exam 2 Narrative: General : Patient is well developed , no acute distress, oriented x3 Head : Normal cephalic, a-traumatic. Ears : Pinnae and external canal are normal. Hearing is normal. Eyes : PERRLA, Sclera and injection are normal. No conjunctival discharge. Nose : Mucous membranes are without erythema. Throat : buccal mucosa is normal, gums are without significant recession or hypertrophy. Lungs : Equal chest rise bilaterally, no use of accessory muscles, trachea is midline. Cor : Rate and rhythm are normal. Abdomen : Soft, ND, mild periumbilical tenderness, no g/r/m Extremities : No edema, no cyanosis or clubbing, dorsalis pedis pulses are present bilaterally, non-tender to palpation of calves. Upper extremities are normal bilaterally. Back : non-tender to palpation, no CVA tenderness. Neuro : CN II - XII intact, Upper and lower extremities have equal and full strength Data 07/17/23 08:06 07/17/23 01:34 A&P Assessment and plan (1) Hematemesis: (2) GERD (gastroesophageal reflux disease): Plan EGD The risks and benefits of the procedure, including bleeding, infection, intestinal perforation requiring surgery, missed lesion were explained to the patient. The patient is understanding of the risks and wishes to proceed. Coding Level of Care Code 81599 Diagnoses Hematemesis K92.0 GERD (gastroesophageal reflux disease) K21.9
[2023-07-17] MEDS: EPINEPHrine 1 mg/mL INJ XX (12:23)
--- NOTE | 2023-07-17 12:45 | ANE.PACU2 ---
Inpatient post-anesthesia follow up: Airway intact: Yes Vital signs: Temperature 98.1 F Pulse Rate 74 Respiratory Rate 16 Blood Pressure 164/92 Pulse Oximetry 93 Oxygen Delivery Me thod [ Nasal Cannula Current Rate & Del nayeli] Oxygen Delivery Me thod Room Air Oxygen Flow Rate [ Current Rate 0.5 & Delivery] Oxygen Flow Rate 2 Fraction of Inspir ed Oxygen Hydration adequate: Yes Nausea and vomiting: No Pain level: 1 Mental status: Baseline
--- NOTE | 2023-07-17 13:10 | PC.NURSE ---
patient returned to room from GI lab.
[2023-07-17] MEDS: sucralfate 1 gm/10 mL Oral Liq UDC PO ×3 (14:38→23:28)
--- NOTE | 2023-07-17 15:37 | PC.SLP ---
Pt not available for RIGHT OF WAY SUPERVISOR assessment. Not in room. RIGHT OF WAY SUPERVISOR will follow-up with the pt tomorrow.
[2023-07-17] MEDS: pantoprazole 40 mg SDV IVP (17:32)
[2023-07-17 17:42] LABS: Add Urine Microscopic? YES; Bilirubin Urine Neg (Negative); Blood Urine 2+ (Negative); Glucose Urine UA Norm (Normal); Ketones Urine Negative (Negative); Leukocyte Esterase Urine 1+ (Negative); Nitrate Urine Negative (Negative); Protein Urine Trace (Negative); Urine Appearance Clear (CLEAR); Urine Color Yellow (Yellow); Urobilinogen Urine Norm (Negative); pH Urine 6.5 (5-7)
[2023-07-17 17:43] LABS: Add Urine Culture? Yes; Bacteria Urine TRACE /hpf; RBC Urine 0-4 /hpf (0-2); Squamous Epithelial Cell Urine RARE /hpf (0-5)
[2023-07-17] MEDS: atorvastatin 40 mg Tablet PO (20:21)
[2023-07-18 04:14] VITALS: BP 133/80; PULSE 81; RESP 18; TEMP 37.2; O2SAT 92
[2023-07-18 04:30] LABS: Basophils % 0.3 %; Eosinophils % 0.1 %; Hematocrit 41.3 % (36-47); Lymphocytes # 1.7 10^3/uL (0.8-4.8); Lymphocytes % 15.5 %; Mean Corpuscular HGB Conc 31.5 g/dL (30-55); Mean Corpuscular Hemoglobin 30.7 pg (27-33); Mean Corpuscular Volume 97.4 fl (85-98); Monocytes # 1.4 10^3/uL (0.2-0.9); Monocytes % 12.6 %; Neutrophils # 7.65 10^3/uL (1.8-7.7); Neutrophils % 71.3 %; Nucleated Red Blood Cells % 0 %; Platelet Count 289 10^3/cmm (157-399); Red Blood Count 4.24 10^6/uL (3.85-5.65); Red Cell Distribution Width 13.1 % (12.1-15.1); White Blood Count 10.72 10^3/uL (3.29-11.43)
[2023-07-18 04:48] LABS: Chloride 103 mmol/L (98-107); Potassium 3.6 mmol/L (3.5-5.1); Sodium 136 mmol/L (136-145)
[2023-07-18 04:58] LABS: Estmated Average Glucose 108; Hemoglobin A1C 5.4 % (4.0-6.0)
[2023-07-18 05:19] LABS: Alanine Aminotransferase 11 U/L (0-33); Albumin Level 3.2 g/dL (3.5-5.2); Alkaline Phosphatase 82 U/L (35-105); Anion Gap 11.3 (5-19); Aspartate Amino Transferase 14 U/L (0-32); Blood Urea Nitrogen 17 mg/dL (8-23); Calcium 7.5 mg/dL (8.5-10.5); Carbon Dioxide 24 mmol/L (22-29); Creatinine Clr Calc Pharmacy 80.9288; Globulin 2.6 g/dL (1.3-4.6); Glomerular Filtration Rate 100.6 mL/min (90-130); Glucose 159 mg/dL (65-115); Osmolality Calculated 283 mOsm/kg (285-295); Total Bilirubin 0.4 mg/dL (0.15-1.2); Total Protein 5.8 g/dL (6.6-8.7)
[2023-07-18] MEDS: sucralfate 1 gm/10 mL Oral Liq UDC PO (05:22)
[2023-07-18] MEDS: pantoprazole 40 mg SDV IVP (05:22)
[2023-07-18 05:40] VITALS: PULSE 84
[2023-07-18 08:00] VITALS: BP 138/84; PULSE 68; RESP 14; TEMP 36.7; O2SAT 94
[2023-07-18] MEDS: dextrose 5%-sod chloride 0.9% 1,000 ML 100 ML IV (08:38)
--- NOTE | 2023-07-18 09:38 | PC.CHAP ---
Pastoral Care Encounter/Spiritual Assessment Type of Contact [] Declined lead software qa engineer visit [] Patient/Family/Request visit [] Outpatient visit [] Follow-up visit [] Physician referral [] Code/Alert [x] Routine visit [] Staff referral [] Actively dying [] Patient sleeping [] Family support [] [] Out of room [] Palliative care [] [] Receiving care in room [] Pre-surgical visit [] Trauma [] Long length of stay [] ICU visit [] Other: Relational/Emotional Strength [x] Patient feels connected with others/family/visitors/staff [] Distress [] Loneliness/isolation [] Abandonment Spirituality of Patient [x] Person of Sakshi [] Attends Orthodoxy of their Sakshi [x] Believes in Prayer [] Reads Bible or Denominational materials [] There are Spiritual issues to be addressed Water Purifier Interventions [x] Prayer [x] Active listening [] Non-anxious presence [x] Spiritual/emotional support [] Crisis/trauma care [] Spiritual counseling [] Bereavement support [] Provided bereavement packet [] Provided Bible/devotional materials [] Provided toy/stuffed animal, coloring book to patient or family member [] Provided Communion [] Anointing/[place] [] Salvation [x] Completed spiritual assessment [] Other: Impact on Illness or Injury [] Angry [] Fearful [] Anxious [] Often cries [] Exhaustion [] Unable to work [] Unable to attend jew [] Unable to walk/stand [] Unable to read [] Unable to drive [] Unable to eat/drink [] Unable to sleep [] Unable to be with family [] Patient intubated [] Other: Summary Time spent with patient 5 min
--- NOTE | 2023-07-18 10:38 | PM.DCS ---
Discharge Providers Date of Admission: 07/17/23 07:50 Date of Discharge: July 18, 2023 Attending Provider at Admission: Sherman Chavez Attending Provider at Discharge: Joe Perera MD Primary Care Provider: Jen Cook APN Diagnoses at Discharge Discharge Diagnosis (1) Hematemesis: Status: Acute (2) GERD (gastroesophageal reflux disease): Status: Acute Reason for Visit Reason for Visit: vomit blood chest pain back pain Hospital Course Hospital Course 63-year female who was admitted for management evaluation of hematemesis, EGD was requested which showed esophageal ulcer, gastritis, duodenitis she will be getting Protonix twice a day regimen along sucralfate, no history of hepatitis or portal hypertension, does not take NSAIDs on daily basis, patient is retired, lives alone, she has worked for 25 years and [employer], does not drink or smoke. H. pylori infection needs to be ruled out her hemoglobin stable she remained hemodynamically stable. 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 Will avoid aggressive blood pressure reduction to avoid worsening of symptoms. She did well with PT. will be discharging her home. Her vision has improved with better control of blood pressure. She is not endorsing vision changes anymore. Echo unremarkable. Physical Exam Narrative: NIH 0 GCS 15 nonfocal neuroexam Blood pressure 138/84 mmHg currently on room air pleasant cooperative abdomen soft Dehydrated Discharge Data Studies Completed and Pending Completed Studies During Hospitalization Category Date Time Status CT ang ches abdpel [id number] Stat Cat Scan 07/17/23 02:[address] head wo con* [id number] Stat Cat Scan 07/17/23 01:39 Completed CTA head neck [CT angio headneck* [id number]] Stat Cat Scan 07/17/23 01:39 Completed XR chest 1V portable [id number] Stat Exams 07/17/23 01:17 Completed MR head wo con* [id number] Routine MRI 07/17/23 07:58 Completed CV. echo w/w bubble cont [id number] Routine Ultrasound 07/17/23 07:58 Completed Pending at discharge Category Date Time Status Urine Culture Routine Lab 07/17/23 17:00 Received Pathology: Surgical [PTH] Routine Pth 07/17/23 12:28 Received Radiology Impressions Chest X-Ray 07/17/23 01:17 IMPRESSION: No acute findings. Head CT 07/17/23 01:39 IMPRESSION: 1. Loss of the rodriguez-white matter differentiation in the left occipital lobe. This is concerning for acute infarction. 2. No intracranial hemorrhage. ASSESSMENT: ASPECTS ([place] Stroke Program Early CT Score) is 10. pc-ASPECTS is 9. THIS REPORT CONTAINS FINDINGS THAT MAY BE CRITICAL TO PATIENT CARE. The findings were verbally communicated via telephone conference with CLAUDIA De Leon at 2:24 AM WIPING RAG WASHER on 07/17/2023. The findings were acknowledged and understood. Head/Neck CTA 07/17/23 01:39 IMPRESSION: No large vessel occlusion or severe stenosis. IMPRESSION: 1. Normal right and left extracranial internal carotid arteries by NASCET criteria. 2. Patent bilateral vertebral arteries with a dominant right vertebral. REFERENCES: NASCET CRITERIA. The degree of stenosis in the cervical segment of the internal carotid artery is based on NASCET criteria. Normal is no stenosis. Mild is less than 50% stenosis. Moderate is 50-69% stenosis. Severe is 70% to 99% stenosis. Total occlusion is no detectable patent lumen. ADDENDUM: 07/17/23 0311 Findings were discussed with CLAUDIA BRITTON at 07/17/2023 3:09 AM WIPING RAG WASHER. Chest/Abdomen/Pelvis CTA 07/17/23 02:39 IMPRESSION: 1. No aortic aneurysm, dissection or penetrating ulcer. 2. Concentric thickening of the distal esophagus that contains fluid, suggestive of reflux esophagitis. Underline neoplasm is not excluded. 3. Marked thickening and hyperemia of the gastric and duodenal [place]man consistent with severe gastroduodenitis. Underlying neoplasm is not excluded. Endoscopy may be helpful, if clinically indicated. Given history of hematemesis, this likely represents hemorrhagic gastritis. 4. Additional non emergent findings are stated in the body of the report. ADDENDUM: 07/17/23 0452 Findings were discussed with CLAUDIA BRITTON at 07/17/2023 4:50 AM WIPING RAG WASHER. Laboratory Results WBC 10.72 10^3/uL (3.29-11.43) 07/18/23 04:06 RBC 4.24 10^6/uL (3.85-5.65) 07/18/23 04:06 Hgb 13.00 g/dL (11.27-16.99) 07/18/23 04:06 Hct 41.3 % (36-47) 07/18/23 04:06 MCV 97.4 fl (85-98) 07/18/23 04:06 MCH 30.7 pg (27-33) 07/18/23 04:06 MCHC 31.5 g/dL (30-55) D 07/18/23 04:06 RDW 13.1 % (12.1-15.1) 07/18/23 04:06 Plt Count 289 10^3/cmm (157-399) 07/18/23 04:06 MPV 9.0 fL (7.4-10.4) 07/18/23 04:06 Neut % (Auto) 71.3 % 07/18/23 04:06 Lymph % (Auto) 15.5 % 07/18/23 04:06 Miller % (Auto) 12.6 % 07/18/23 04:06 Eos % (Auto) 0.1 % 07/18/23 04:06 Baso % (Auto) 0.3 % 07/18/23 04:06 Neut # (Auto) 7.65 10^3/uL (1.8-7.7) 07/18/23 04:06 Lymph # (Auto) 1.7 10^3/uL (0.8-4.8) 07/18/23 04:06 Miller # (Auto) 1.4 10^3/uL (0.2-0.9) H 07/18/23 04:06 Eos # (Auto) 0.0 10^3/uL (0.0-0.8) 07/18/23 04:06 Baso # (Auto) 0.0 10^3/uL (0.0-0.1) 07/18/23 04:06 Nucleated RBC % (auto) 0 % 07/18/23 04:06 Nucleated RBCs # 0.0 /100WBC 07/18/23 04:06 PT 13.10 SECONDS (12.1-14.9) 07/17/23 01:34 INR 0.97 (0.8-1.2) 07/17/23 01:34 Sodium 136 mmol/L (136-145) 07/18/23 04:06 Potassium 3.6 mmol/L (3.5-5.1) 07/18/23 04:06 Chloride 103 mmol/L (98-107) 07/18/23 04:06 Carbon Dioxide 24 mmol/L (22-29) 07/18/23 04:06 Anion Gap 11.3 (5-19) 07/18/23 04:06 BUN 17 mg/dL (8-23) 07/18/23 04:06 Creatinine 0.6 mg/dL (0.5-0.9) 07/18/23 04:06 GFR Calculation 100.6 mL/min (90-130) 07/18/23 04:06 Glucose 159 mg/dL (65-115) H 07/18/23 04:06 POC Glucose 186 mg/dL (70-110) H 07/17/23 01:37 Estimat Average Glucose 108 07/18/23 04:06 Hemoglobin A1c 5.4 % (4.0-6.0) 07/18/23 04:06 Calculated Osmolality 283 mOsm/kg (285-295) L 07/18/23 04:06 Calcium 7.5 mg/dL (8.5-10.5) L 07/18/23 04:06 Total Bilirubin 0.4 mg/dL (0.15-1.2) 07/18/23 04:06 AST 14 U/L (0-32) 07/18/23 04:06 ALT 11 U/L (0-33) 07/18/23 04:06 Alkaline Phosphatase 82 U/L (35-105) 07/18/23 04:06 Troponin T Baseline 12 ng/L (0-10) H 07/17/23 01:34 Troponin T 120 Minute 13.54 ng/L (0-10) H 07/17/23 03:20 Delta Troponin T 1.54 ABS# (0-10) 07/17/23 03:20 Troponin T Hi Sens 6Hr 34.94 ng/L (0-10) H 07/17/23 08:06 Troponin T Hi Sens 6Hr Delta 22.94 ng/L (0-12) H* 07/17/23 08:06 Total Protein 5.8 g/dL (6.6-8.7) L 07/18/23 04:06 Albumin 3.2 g/dL (3.5-5.2) L 07/18/23 04:06 Globulin 2.6 g/dL (1.3-4.6) 07/18/23 04:06 Triglycerides 66 mg/dL (0-150) 07/17/23 01:34 Cholesterol 167 mg/dL (0-200) 07/17/23 01:34 LDL Cholesterol, Calc 94 mg/dL (50-129) 07/17/23 01:34 HDL Cholesterol 60 mg/dL (60-100) 07/17/23 01:34 LDL/HDL Ratio 1.57 RATIO (0.00-3.22) 07/17/23 01:34 Cholesterol/HDL Ratio 2.78 mg/dL (0.0-4.40) 07/17/23 01:34 Lipase 75 U/L (13-60) H 07/17/23 01:34 Urine Color Yellow (Yellow) 07/17/23 17:00 Urine Appearance Clear (CLEAR) 07/17/23 17:00 Urine pH 6.5 (5-7) 07/17/23 17:00 Ur Specific [place] 1.010 (1.005-1.030) 07/17/23 17:00 Urine Protein Trace (Negative) 07/17/23 17:00 Urine Glucose (UA) Norm (Normal) 07/17/23 17:00 Urine Ketones Negative (Negative) 07/17/23 17:00 Urine Blood 2+ (Negative) H 07/17/23 17:00 Urine Nitrate Negative (Negative) 07/17/23 17:00 Urine Bilirubin Neg (Negative) 07/17/23 17:00 Urine Urobilinogen Norm mg/dL (Negative) 07/17/23 17:00 Ur Leukocyte Esterase 1+ (Negative) H 07/17/23 17:00 Urine RBC 0-4 /hpf (0-2) H 07/17/23 17:00 Urine WBC 5-10 /hpf (0-5) H 07/17/23 17:00 Ur Squamous Epith Cells Rare /hpf (0-5) 07/17/23 17:00 Amorphous Sediment Not Reportable 07/17/23 17:00 Urine Bacteria Trace /hpf (NONE) 07/17/23 17:00 Urine Mucus 1+ /hpf 07/17/23 02:54 Urine Opiates Screen Negative ng/mL (Negative) 07/17/23 02:54 Ur Barbiturates Screen Negative ng/mL (Negative) 07/17/23 02:54 Ur Phencyclidine Scrn Negative ng/mL (Negative) 07/17/23 02:54 Ur Amphetamines Screen Positive ng/mL (Negative) H 07/17/23 02:54 U Benzodiazepines Scrn Negative ng/mL (Negative) 07/17/23 02:54 Urine Cocaine Screen Negative ng/mL (Negative) 07/17/23 02:54 U Marijuana (THC) Screen Positive ng/mL (Negative) H 07/17/23 02:54 Ethyl Alcohol < 10 mg/dL (0-10) 07/17/23 03:20 Vitals Last Vital Signs Temp 98.0 F 07/18/23 08:00 Pulse 68 07/18/23 08:00 Resp 14 07/18/23 08:00 BP 138/84 07/18/23 08:00 Pulse Ox 94 07/18/23 08:00 O2 Del Method Room Air 07/18/23 08:00 O2 Flow Rate 0.5 07/17/23 13:06 Discharge Plan Discharge Patient Disposition: Home Condition: Stable Prescriptions: New aspirin 81 mg tablet,delayed release (DR/EC) 81 mg PO DAILY Qty: 30 3RF pantoprazole [Protonix] 40 mg tablet,delayed release (DR/EC) 40 mg PO BID 56 Days Qty: 112 0RF amlodipine 5 mg tablet 5 mg PO DAILY Qty: 30 4RF atorvastatin 40 mg tablet 40 mg PO DAILY Qty: 60 2RF sucralfate 1 gram tablet 1 g PO TID 56 Days Qty: 168 0RF Continued albuterol sulfate 90 mcg/actuation HFA aerosol inhaler 2 puff inhalation Q6H PRN (Reason: Shortness Of Breath) (DME) Orthopedic Shoes with custom insoles See Rx Instructions .Route .MEDSUPPLY Qty: 1 0RF Rx Instructions: As directed BY HOME gabapentin 600 mg tablet 600 mg PO TID levothyroxine 100 mcg tablet 100 mcg PO DAILY citalopram 20 mg tablet 20 mg PO DAILY Changed lisinopril 5 mg tablet 10 mg PO DAILY Qty: 60 0RF Discontinued atorvastatin 10 mg tablet 10 mg PO DAILY Discharge Orders: Discharge Order (Routine); Ordered 07/18/23 Ordered By: Joe Perera Referrals: Jen Cook, [employer] W[employer]MAN [Primary Care Provider] - 4-7 days Patient Instructions: GI Discharge Instructions, Opioid Safety Activity Restrictions/Additional Instructions: Your vision changes were likely related to blood pressure fluctuation I would recommend lisinopril 10 mg daily along amlodipine if blood pressure stays above 140/90 mm you have room to go up on your amlodipine up to 10 mg and you can increase lisinopril up to 30 or 40 mg daily Maximum dose of amlodipine in the day is 10 mg and maximum dose of lisinopril in 1 days 40 mg For gastric ulcer you will need to follow-up with the biopsy report with your PCP for now we are giving you sucralfate and Protonix for 8 weeks Discharge Attestations Time Spent in Discharge Care*: greater than 30 min Quality Metrics Clinical Quality Measures [ No reported AMI, CVA or VTE this stay] Coding Level of Care Code Acute Code for Chg Fwd Diagnoses Hematemesis K92.0 GERD (gastroesophageal reflux disease) K21.9
[2023-07-18 10:58] VITALS: PULSE 68; O2SAT 95
[2023-07-18 11:17] VITALS: PULSE 68; O2SAT 95
--- NOTE | 2023-07-18 11:28 | PC.NURSE ---
Discharge instructions provided to pt. RX sent to [facility]. No questions or concerns at this time. Sister is outside to pick pt up. Pt to sister's vehicle with all belongings via wheelchair
== END 2023-07-18 11:29 | disposition home or self-care (01) ==
LOC: ER 04:57 → MEDSURG 06:50
PROVIDERS: Surgery; Admitting Provider Internal Medicine; Emergency Provider Emergency Medicine; PCP Nurse Practitioner; Visit Provider Internal Medicine
PROC: 0DJ08ZZ Inspection of Upper Intestinal Tract, Via Natural or Artificial Opening Endoscopic (ICD-10-PCS; CPT 43235; principal; 2023-07-17 12:15)
DX: K92.0 Hematemesis (principal); K21.9 Gastro-esophageal reflux disease without esophagitis; K25.9 Gastric ulcer, unspecified as acute or chronic, without hemorrhage or perforation; B96.81 Helicobacter pylori [H. pylori] as the cause of diseases classified elsewhere; K29.70 Gastritis, unspecified, without bleeding; K29.80 Duodenitis without bleeding; I10 Essential (primary) hypertension; E03.9 Hypothyroidism, unspecified; Z86.010 Personal history of colon polyps; E78.5 Hyperlipidemia, unspecified; I63.9 Cerebral infarction, unspecified; F15.90 Other stimulant use, unspecified, uncomplicated; K20.90 Esophagitis, unspecified without bleeding
CPT/HCPCS: 36415; 36416; 43239; 43255; 70450; 70496; 70498; 70551; 71045; 71275; 74174; 80053; 80061; 80306; 80307; 81001; 82962; 83036; 83690; 84484; 85018; 85025; 85610; 87086; 88305; 88342; 92523; 92610; 93005; 96374; 96375; 96376; 97161; 97165; 97535; 99285; C8929; C9113; G0378; J0171; J0360; J0696; J2405; J2704; J7030; J7042; Q9967

== ENCOUNTER → 2024-01-13 15:59 | Outpatient (BNVA) | payer MEDICARE, MEDICAID, SELFPAY ==
[2021-06-14 15:04] VITALS: BP 156/98; BMI 21.3
== END ==
PROVIDERS: PCP Family Medicine; Visit Provider Registered Nurse Neonatal Intensive Care
DX: M19.071 Primary osteoarthritis, right ankle and foot (principal); S90.111A Contusion of right great toe without damage to nail, initial encounter; X58.XXXA Exposure to other specified factors, initial encounter
CPT/HCPCS: 73630

== ENCOUNTER 2024-01-17 06:00 | Outpatient (CLI) | payer MEDICARE, MEDICAID, SELFPAY ==
[2021-06-14 15:04] VITALS: BP 156/98; BMI 21.3
== END 2024-01-17 06:01 | disposition home or self-care (01) ==
LOC: SPT 01-18 12:12
PROVIDERS: Visit Provider Podiatrist Foot & Ankle Surgery
DX: Z46.89 Encounter for fitting and adjustment of other specified devices (principal); S92.401D Displaced unspecified fracture of right great toe, subsequent encounter for fracture with routine healing; X58.XXXD Exposure to other specified factors, subsequent encounter
CPT/HCPCS: 97760; L4361

== ENCOUNTER → 2024-02-01 14:37 | Outpatient (BNVA) | payer MEDICARE, MEDICAID, SELFPAY ==
[2021-06-14 15:04] VITALS: BP 156/98; BMI 21.3
== END ==
PROVIDERS: PCP Nurse Practitioner Family; Visit Provider Podiatrist Foot & Ankle Surgery
DX: M79.671 Pain in right foot (principal); S92.911D Unspecified fracture of right toe(s), subsequent encounter for fracture with routine healing; X58.XXXD Exposure to other specified factors, subsequent encounter
CPT/HCPCS: 73630; 99213

== ENCOUNTER → 2024-03-12 11:18 | Outpatient (BNVA) | payer MEDICARE, MEDICAID, SELFPAY ==
[2021-06-14 15:04] VITALS: BP 156/98; BMI 21.3
== END ==
PROVIDERS: PCP Nurse Practitioner Family; Visit Provider Registered Nurse Neonatal Intensive Care
DX: R39.9 Unspecified symptoms and signs involving the genitourinary system (principal)
CPT/HCPCS: 81000

== ENCOUNTER → 2024-09-16 18:48 | Outpatient (BNVA) | payer MEDICARE, MEDICAID, SELFPAY ==
[2021-06-14 15:04] VITALS: BP 156/98; BMI 21.3
== END ==
PROVIDERS: PCP Nurse Practitioner Family
DX: S49.92XA Unspecified injury of left shoulder and upper arm, initial encounter (principal); W19.XXXA Unspecified fall, initial encounter
CPT/HCPCS: 73030

== ENCOUNTER 2024-12-06 10:45 | Outpatient (CLI) | payer MEDICARE, MEDICAID, SELFPAY ==
[2021-06-14 15:04] VITALS: BP 156/98; BMI 21.3
--- NOTE | 2024-12-06 10:56 | MM_ITS ---
WS: [id number] BILATERAL 3D TOMOSYNTHESIS DIGITAL SCREENING MAMMOGRAPHY WITH CAD CLINICAL INFORMATION: SCREEN HISTORY: Screening mammogram. No current complaints. COMPARISON: 2021 TECHNIQUE: Bilateral CC and MLO views. FINDINGS: Scattered fibroglandular densities bilaterally. No suspicious focal mass, asymmetry, calcifications, or architectural distortion. No evidence of malignancy. Benign calcification LEFT breast. Vascular calcification. MM/MM scr BI tomosynthesis [id number] IMPRESSION: DENSITY: There are scattered areas of fibroglandular density. BI-RADS: 2 - Benign. FOLLOW UP: 1 Year Follow-up Recommend return to annual screening mammography.
== END 2024-12-06 10:46 | disposition home or self-care (01) ==
LOC: RAD 10:46
PROVIDERS: PCP Nurse Practitioner Family; Visit Provider Nurse Practitioner Family
DX: Z12.31 Encounter for screening mammogram for malignant neoplasm of breast (principal); R92.323 Mammographic fibroglandular density, bilateral breasts; R92.1 Mammographic calcification found on diagnostic imaging of breast
CPT/HCPCS: 77063; 77067

== ENCOUNTER → 2024-12-25 14:07 | Outpatient (BNVA) | payer MEDICARE, MEDICAID, SELFPAY ==
[2021-06-14 15:04] VITALS: BP 156/98; BMI 21.3
== END ==
PROVIDERS: PCP Nurse Practitioner Family; Visit Provider Podiatrist Foot & Ankle Surgery
DX: I73.9 Peripheral vascular disease, unspecified (principal); L60.3 Nail dystrophy
CPT/HCPCS: 11721